=== PATIENT | female | born 1960 | race Two or more races ===

== ENCOUNTER → 2016-10-05 | Outpatient (CLI) | payer BC ==
--- NOTE | 2016-10-06 14:26 | MR ---
EXAMINATION TYPE: MR knee LT wo con DATE OF EXAM: 10/05/2016 1:56 PM COMPARISON: NONE HISTORY: Effuson, left knee pain and swelling TECHNIQUE: Multiplanar, multisequence imaging of the left knee is performed without IV contrast. FINDINGS: MEDIAL MENISCUS: Increased signal within the posterior horn medial meniscus compatible type I interna l derangement or degenerative change. Anterior horn appears intact LATERAL MENISCUS: There is linear signal within the anterior and posterior horns of the lateral menis cus compatible with internal derangement or type I tear. Meniscal cyst may be adjacent to the medial anterior horn lateral meniscus. CRUCIATE LIGAMENTS: The anterior and posterior cruciate ligaments are intact and unremarkable. COLLATERAL LIGAMENTS: The medial collateral ligament and lateral collateral ligament complex are inta ct and unremarkable. EXTENSOR MECHANISM: Visualized quadriceps and patellar tendons are intact. EFFUSION: Moderate joint effusion is present. POPLITEAL CYST: No popliteal/waters cyst. TRICOMPARTMENT SPACES: Mild degenerative changes of the medial lateral compartments. There is more ad vanced degenerative change with loss of the articular cartilage patellofemoral joint space. This appe ars to be predominantly from the patella. CARTILAGE: There is thinning of the posterior patellar cartilage. Mild thinning of the medial compart ment joint space is present. BONE MARROW SIGNAL: There is a subchondral cyst in the medial aspect lateral tibial plateau. Subchond ral cysts also in the lateral aspect lateral tibial plateau. Spurring is present from the medial and lateral femoral condyles. OTHER: No additional significant abnormality is appreciated. Note is made of superficial varicositie s. IMPRESSION: 1. Small to moderate joint effusion. 2. Internal derangement degenerative changes posterior horn medial meniscus and anterior and posterio r horns lateral meniscus. A meniscal cyst may be adjacent to the anterior horn lateral meniscus. 3. Subchondral cysts in the lateral tibial plateau medially and posterolaterally. 4. Osteoarthritic degenerative change. Greatest from the posterior patella.
== END | disposition home or self-care (01) ==
LOC: RADMRIMAIN 12:38
PROVIDERS: ATTEND Nurse Practitioner Family
DX: M23.8X2 Other internal derangements of left knee (principal); M17.12 Unilateral primary osteoarthritis, left knee; M25.862 Other specified joint disorders, left knee

== ENCOUNTER → 2019-04-28 | Outpatient (CLI) | payer BC ==
--- NOTE | 2019-04-29 14:16 | MM ---
Reason for exam: screening (asymptomatic). Last mammogram was performed 2 years and 9 months ago. History: Patient is postmenopausal and had first child at age 34. Physical Findings: A clinical breast exam by your physician is recommended on an annual basis and results should be correlated with mammographic findings. MG Screening Mammo w CAD Bilateral CC and MLO view(s) were taken. Prior study comparison: July 24, 2016, bilateral MG screening mammo w CAD. February 13, 2015, bilateral MG screening mammo w CAD. The breast tissue is heterogeneously dense. This may lower the sensitivity of mammography. Benign appearing bilateral calcifications. No suspicious abnormality. No significant changes when compared with prior studies. ASSESSMENT: Benign, BI-RAD 2 RECOMMENDATION: Routine screening mammogram of both breasts in 1 year.
== END | disposition home or self-care (01) ==
LOC: RADMAMWWP 07:45
PROVIDERS: ATTEND Family Medicine
DX: Z12.31 Encounter for screening mammogram for malignant neoplasm of breast (principal)
CPT/HCPCS: 77067

== ENCOUNTER → 2021-12-17 | Outpatient (CLI) | payer BC ==
--- NOTE | 2021-12-18 08:58 | MM ---
Reason for exam: screening (asymptomatic). Last mammogram was performed 2 years and 8 months ago. History: Patient is postmenopausal and had first child at age 34. Physical Findings: A clinical breast exam by your physician is recommended on an annual basis and results should be correlated with mammographic findings. MG Screening Mammo w CAD Bilateral CC and MLO view(s) were taken. Prior study comparison: April 28, 2019, bilateral MG screening mammo w CAD. July 24, 2016, bilateral MG screening mammo w CAD. The breast tissue is heterogeneously dense. This may lower the sensitivity of mammography. There are benign appearing round calcifications bilaterally. There is no discrete abnormality. ASSESSMENT: Benign, BI-RAD 2 RECOMMENDATION: Routine screening mammogram of both breasts in 1 year.
== END | disposition home or self-care (01) ==
LOC: RADMAMWWP 12:17
PROVIDERS: ATTEND Family Medicine
DX: Z12.31 Encounter for screening mammogram for malignant neoplasm of breast (principal); Z78.0 Asymptomatic menopausal state
CPT/HCPCS: 77067

== ENCOUNTER → 2023-04-22 | Outpatient (CLI) | payer OTHER ==
[2023-04-22 12:44] LABS: INR 0.9 (<1.2); Prothrombin Time 10.1 sec (9.0-12.0)
[2023-04-22 12:45] LABS: Partial Thromboplastin Time 23.8 sec (22.0-30.0)
[2023-04-22 13:17] LABS: Appearance,Urine Cloudy (Clear); Bilirubin,Urine Negative (Negative); Blood,Urine Negative (Negative); Calcium Oxalate Crystals,Urine Rare /hpf; Color,Urine Yellow; Glucose,Urine (UA) Negative (Negative); Granular Casts,Urine 2 /lpf (0); Hyaline Casts,Urine 2 /lpf (0-2); Ketones,Urine Negative (Negative); Leukocyte Esterase,Urine Negative (Negative); Mucus,Urine Many /hpf; Nitrite,Urine Negative (Negative); Protein,Urine Trace (Negative); RBC,Urine 2 /hpf (0-5); Specific Gravity,Urine 1.035 (1.001-1.035); Squamous Epithelial Cell,Urine 12 /hpf (0-4); Urobilinogen,Urine <2.0 mg/dL (<2.0); WBC,Urine <1 /hpf (0-5)
[2023-04-22 15:59] LABS: ALT 21 U/L (8-44); AST 22 U/L (13-35); Albumin 4.4 d/dL (3.8-4.9); Albumin/Globulin Ratio 1.63 Ratio (1.60-3.17); Alkaline Phosphatase 82 U/L (41-126); Blood Urea Nitrogen 11.9 mg/dL (9.0-27.0); Calcium 9.3 mg/dL (8.7-10.3); Carbon Dioxide 22.4 mmol/L (21.6-31.8); Chloride 107 mmol/L (96-109); Globulin 2.7 d/dL (1.6-3.3); Glucose 92 mg/dL (70-110); Potassium 3.9 mmol/L (3.5-5.5); Sodium 144 mmol/L (135-145); Total Bilirubin 0.4 mg/dL (0.3-1.2); Total Protein 7.1 d/dL (6.2-8.2)
[2023-04-22 16:21] LABS: HCT 38.6 % (37.2-46.3); HGB 12.2 d/dL (12.0-15.0); MCH 26.6 pg (27.0-32.0); MCHC 31.6 d/dL (32.0-37.0); MCV 84.3 FL (80.0-97.0); Mean Platelet Volume 11.5 FL (9.5-12.2); NRBC Per 100 WBC 0 X 10*3/uL (0.00-0.01); Platelet Count 287 X 10*3/uL (140-440); RBC 4.58 X 10*6/uL (4.10-5.20); RDW 15.4 % (11.5-14.5); WBC 6.37 X 10*3/uL (4.50-10.00)
== END | disposition home or self-care (01) ==
LOC: LABPAT 10:53
PROVIDERS: ATTEND Orthopaedic Surgery Sports Medicine
DX: Z01.818 Encounter for other preprocedural examination (principal); I45.10 Unspecified right bundle-branch block; M17.12 Unilateral primary osteoarthritis, left knee; R94.31 Abnormal electrocardiogram [ECG] [EKG]
CPT/HCPCS: 80053; 81001; 85027; 85610; 85730; 87070; 93005

== ENCOUNTER → 2023-06-05 | Outpatient (CLI) | payer MEDICAID ==
[2023-06-05 12:46] LABS: INR 0.9 (<1.2); Partial Thromboplastin Time 24.3 sec (22.0-30.0); Prothrombin Time 10.1 sec (9.0-12.0)
[2023-06-05 16:29] LABS: HCT 39.6 % (37.2-46.3); HGB 12.2 d/dL (12.0-15.0); MCH 26.3 pg (27.0-32.0); MCHC 30.8 d/dL (32.0-37.0); MCV 85.3 FL (80.0-97.0); NRBC Per 100 WBC 0 X 10*3/uL (0.00-0.01); Platelet Count 273 X 10*3/uL (140-440); RBC 4.64 X 10*6/uL (4.10-5.20); RDW 15.4 % (11.5-14.5); WBC 6.73 X 10*3/uL (4.50-10.00)
[2023-06-05 16:52] LABS: ALT 19 U/L (8-44); AST 18 U/L (13-35); Albumin 4.3 d/dL (3.8-4.9); Albumin/Globulin Ratio 1.43 Ratio (1.60-3.17); Alkaline Phosphatase 76 U/L (41-126); Blood Urea Nitrogen 18.4 mg/dL (9.0-27.0); Calcium 9.6 mg/dL (8.7-10.3); Carbon Dioxide 24.4 mmol/L (21.6-31.8); Chloride 106 mmol/L (96-109); Glucose 94 mg/dL (70-110); Potassium 4.1 mmol/L (3.5-5.5); Sodium 145 mmol/L (135-145); Total Bilirubin 0.3 mg/dL (0.3-1.2); Total Protein 7.3 d/dL (6.2-8.2)
[2023-06-05 23:42] LABS: Appearance,Urine Cloudy (Clear); Bacteria,Urine None Seen (None Seen); Bilirubin,Urine Small (Negative); Blood,Urine Negative (Negative); Calcium Oxalate Crystals,Urine Present (None Seen); Color,Urine Dark Yellow (Yellow); Ketones,Urine Trace (Negative); Mucus,Urine Present (None Seen); Nitrite,Urine Negative (Negative); PH, Urine 5.5; Specific Gravity,Urine >1.035 (1.001-1.030)
== END | disposition home or self-care (01) ==
LOC: LABPAT 10:35
PROVIDERS: ATTEND Orthopaedic Surgery Sports Medicine
DX: Z01.818 Encounter for other preprocedural examination (principal); M17.12 Unilateral primary osteoarthritis, left knee; I45.10 Unspecified right bundle-branch block; I49.3 Ventricular premature depolarization; R94.31 Abnormal electrocardiogram [ECG] [EKG]
CPT/HCPCS: 80053; 81001; 85027; 85610; 85730; 87070; 93005

== ENCOUNTER → 2024-01-15 | Outpatient (CLI) | payer MEDICARE ==
[2024-01-15 09:37] LABS: Prothrombin Time 10.6 sec (10.0-12.5)
[2024-01-15 14:30] LABS: HCT 43.3 % (37.2-46.3); HGB 13.6 g/dL (12.0-15.0); MCH 27.2 pg (27.0-32.0); MCHC 31.4 g/dL (32.0-37.0); MCV 86.6 FL (80.0-97.0); Mean Platelet Volume 11.1 FL (9.5-12.2); NRBC Per 100 WBC 0 X 10*3/uL (0.00-0.01); Platelet Count 312 X 10*3/uL (140-440); RDW 15.2 % (11.5-14.5); WBC 6.78 X 10*3/uL (4.50-10.00)
[2024-01-15 15:11] LABS: ALT 17 U/L (8-44); AST 22 U/L (13-35); Albumin 4.4 g/dL (3.8-4.9); Albumin/Globulin Ratio 1.42 Ratio (1.60-3.17); Alkaline Phosphatase 75 U/L (41-126); BUN/Creat Ratio 17.62 Ratio (12.00-20.00); Blood Urea Nitrogen 14.1 mg/dL (9.0-27.0); Calcium 9.3 mg/dL (8.7-10.3); Carbon Dioxide 21.8 mmol/L (21.6-31.8); Chloride 106 mmol/L (96-109); Globulin 3.1 g/dL (1.6-3.3); Glucose 122 mg/dL (70-110); Potassium 4.2 mmol/L (3.5-5.5); Sodium 141 mmol/L (135-145); Total Bilirubin 0.5 mg/dL (0.3-1.2); Total Protein 7.5 g/dL (6.2-8.2)
== END | disposition home or self-care (01) ==
LOC: LABWHC1 08:53
PROVIDERS: ATTEND Orthopaedic Surgery Sports Medicine
DX: Z01.818 Encounter for other preprocedural examination (principal); M17.11 Unilateral primary osteoarthritis, right knee; Z22.322 Carrier or suspected carrier of Methicillin resistant Staphylococcus aureus
CPT/HCPCS: 36415; 80053; 85027; 85610; 85730; 87070; 93005

== ENCOUNTER 2024-01-29 07:58 | Observation (INO) | payer MEDICAID, MEDICARE ==
[~2024-01-29 07:58] MED LIST: HYDROmorphone 0.5 MG/0.5 ML SYRINGE IVP PRN; METOCLOPRAMIDE 5 MG/ML 2 ML VIAL IVP PRN; MIDAZOLAM 2 MG/2 ML VIAL IV PRN; TRANEXAMIC 1,000 MG/100ML-NACL 1,000 MG in SALINE 1 100ML.BAG IVPB PRN; fentaNYL (PF) 50 MCG/ML 2 ML AMP IV PRN; fentaNYL (PF) 50 MCG/ML 2 ML AMP IVP PRN
[2024-01-29] MEDS: ACETAMINOPHEN TAB 500 MG TAB PO PRN (08:54)
[2024-01-29] MEDS: MELOXICAM 7.5 MG TAB PO PRN (08:55)
[2024-01-29] MEDS: GABAPENTIN 300 MG CAP PO PRN (08:55)
[2024-01-29] MEDS: LIDOCAINE 1% (10MG/ML) FOR IV START INTRADERMA PRN (09:07)
[2024-01-29] MEDS: LACTATED RINGERS 1,000 ML IV SCH ×2 (09:08→15:01)
[2024-01-29] MEDS: ONDANSETRON 4 MG/2 ML VIAL IVP PRN (09:08)
[2024-01-29] MEDS: IV FLUID CONTINUATION 1,000 ML IV ONE (09:08)
[2024-01-29] MEDS: DEXAMETHASONE SOD PHOSPHATE 4 MG/ML 1 ML VIAL IV ONE (09:08)
[2024-01-29] MEDS: MIDAZOLAM 2 MG/2 ML VIAL IVP ONE (09:20)
[2024-01-29] MEDS ORDERED: MIDAZOLAM 2 MG/2 ML VIAL ONE (10:00)
[2024-01-29] MEDS ORDERED: fentaNYL (PF) 50 MCG/ML 2 ML AMP ONE (10:00)
[2024-01-29] MEDS ORDERED: SODIUM CHLORIDE 0.9% (PF) 10 ML VIAL ONE (10:00)
[2024-01-29] MEDS ORDERED: PROPOFOL 10 MG/ML 20 ML VIAL IV ONE (10:00)
[2024-01-29] MEDS ORDERED: TRANEXAMIC 1,000 MG/100ML-NACL PREMIX BAG ONE (10:00)
[2024-01-29] MEDS ORDERED: ePHEDrine 50 MG/ML 1 ML VIAL ONE (10:00)
[2024-01-29] MEDS ORDERED: ROPIVACAINE 5 MG/ML 30 ML VIAL ONE (10:00)
[2024-01-29] MEDS: ceFAZolin 3,000 MG in SODIUM CHLORIDE 0.9% IRRIGATIO 3,000 ML IRRIGATION ONE (10:38)
--- NOTE | 2024-01-29 11:13 | P.ANPRN ---
Procedure Note - Anesthesia - Nerve Block Performed Right Adductor Canal Single Time Out Performed: Yes Date of Procedure: 01/29/24 Procedure Start Time: 09:00 Procedure Stop Time: 09:10 Location of Patient: PreOp Indication: Acute Post-Operative Pain, Analgesia, Dx/Pain Location (Right knee pain ), Requested by Surgeon Sedation Type: Sedate with meaningful contact maintained Preparation: Sterile Prep, Sterile Dressing Position: Supine Catheter: Indwelling (6cm indwelling catheter) Needle Types: Pajunk Needle Gauge: 21 Ultrasound used to visualize needle placement: Yes Ultrasound used to observe medication spread: Yes Injectate: 0.5% Ropivacaine (see comment for volume) (20ml) Blood Aspirated: No Pain Paresthesia on Injection Noted: No Resistance on Injection: Normal Image Stored and Saved: Yes Events: Uneventful and Well Tolerated
--- NOTE | 2024-01-29 11:14 | P.ANPRN ---
Procedure Note - Anesthesia - Nerve Block Performed Right iPack Single Time Out Performed: Yes Date of Procedure: 01/29/24 Procedure Start Time: 09:10 Procedure Stop Time: 09:15 Location of Patient: PreOp Indication: Acute Post-Operative Pain, Dx/Pain Location (right knee pain ), Requested by Surgeon Sedation Type: Sedate with meaningful contact maintained Position: Left Lateral Catheter: None Needle Types: Pajunk Needle Gauge: 21 Ultrasound used to visualize needle placement: Yes Ultrasound used to observe medication spread: Yes Injectate: Other (see comment) (15ml 0.2% ropivacaine) Blood Aspirated: No Pain Paresthesia on Injection Noted: No Resistance on Injection: Normal Image Stored and Saved: Yes Events: Uneventful and Well Tolerated
[2024-01-29] MEDS: LACTATED RINGERS 1,000 ML IV ONE (11:28)
[2024-01-29] MEDS ORDERED: MAGNESIUM HYDROXIDE 2,400 MG/30 ML CUP PO PRN (12:15)
[2024-01-29] MEDS ORDERED: NALOXONE 0.4 MG/ML 1 ML VIAL IV PRN (12:15)
[2024-01-29] MEDS ORDERED: ACETAMINOPHEN TAB 325 MG TAB PO PRN (12:15)
[2024-01-29] MEDS ORDERED: NA PHOS,M-B/NA PHOS,DI-BA 133 ML ENEMA RECTAL PRN (12:15)
[2024-01-29] MEDS ORDERED: ONDANSETRON 4 MG/2 ML VIAL IVP PRN (12:15)
[2024-01-29] MEDS ORDERED: bisacodyL 10 MG SUPP RECTAL PRN (12:15)
[2024-01-29] MEDS ORDERED: traMADol 50 MG TAB PO PRN (12:15)
[2024-01-29] MEDS ORDERED: HYDROmorphone 0.5 MG/0.5 ML SYRINGE IVP PRN ×2 (12:15)
[2024-01-29] MEDS ORDERED: HYDROcodone/APAP 7.5-325MG 1 EACH TAB PO PRN (12:18)
[2024-01-29] MEDS: ROPIVACAINE 1,100 MG, SODIUM CHLORIDE 0.9% 500 ML 330 ML, EMPTY PAIN BALL 1 EACH MISCELLANE PRN (12:34)
--- NOTE | 2024-01-29 13:21 | XR ---
EXAMINATION TYPE: XR knee limited RT DATE OF EXAM: 01/29/2024 12:53 PM CLINICAL INDICATION:Female, 63 years old with history of Evaluation for Postop abnormality and alignm ent; [facility] COMPARISON: None. TECHNIQUE: XR knee limited RT; examined in Frontal, lateral projections. FINDINGS: Status post total knee arthroplasty changes with hardware in appropriate alignment and in tact. No evidence of fracture. Subcutaneous lucencies and lucencies within the joint consistent with surgical changes. IMPRESSION: Status post total knee arthroplasty changes with hardware intact and appropriate alignment. No fractu res identified.
[2024-01-29] MEDS: HYDROcodone/APAP 7.5-325MG 1 EACH TAB PO PRN (15:41)
--- NOTE | 2024-01-29 16:24 | P.CONS ---
History of Present Illness - Reason for Consult Consult date: 01/29/24 medical management - History of Present Illness This is a 63-year-old white female who was admitted to the hospital with the pain. She underwent right knee surgery. She is currently postop, no chest pain no vomiting no dizziness. Family at bedside. She is accompanied by family. She denies chest pain or shortness of breath, no hematuria dysuria hematemesis hematochezia. Review of Systems 10 systems reviewed, pertinent positive and negative findings as in HPI, right knee pain, no chest pain or abdominal pain. Past Medical History Past Medical History: Asthma, Hypertension, Osteoarthritis (OA) Additional Past Medical History / Comment(s): VARICOSE VEINS History of Any Multi-Drug Resistant Organisms: None Reported Past Surgical History: Breast Surgery, Hysterectomy Additional Past Surgical History / Comment(s): RIGHT SIDE BREAST LUMPECTOMY. VARICOSE VEIN SURGERY Past Anesthesia/Blood Transfusion Reactions: No Reported Reaction Additional Past Anesthesia/Blood Transfusion Reaction / Comm: slow to wake up Past Psychological History: Anxiety, Depression Smoking Status: Former smoker Past Alcohol Use History: Rare Additional Past Alcohol Use History / Comment(s): quit smoking 7 yrs. ago, smoked 20 yrs. <ppd Past Drug Use History: None Reported - Past Family History Mother Family Medical History: Myocardial Infarction (RI) Additional Family Medical History / Comment(s): Father had Parkinson's Medications and Allergies Home Medications Medication Instructions Recorded Confirmed Type amLODIPine BESYLATE [Norvasc] 2.5 mg PO HS 02/08/14 01/26/24 History Ascorbic Acid [Vitamin C] 1,000 mg PO DAILY 01/26/24 01/26/24 History Budesonide-Formot 160-4.5 Mcg 2 puff INHALATION BID 01/26/24 01/29/24 History [Symbicort 160-4.5 Mcg Inhaler] Cholecalciferol [Vitamin D3 (25 25 mcg PO DAILY 01/26/24 01/29/24 History Mcg = 1000 Iu)] Ibuprofen [Motrin] 400 mg PO Q6HR PRN 01/26/24 01/26/24 History Losartan [Cozaar] 50 mg PO HS 01/26/24 01/26/24 History QUEtiapine [SEROquel] 25 mg PO HS 01/26/24 01/26/24 History Sertraline [Zoloft] 50 mg PO DAILY 01/26/24 01/29/24 History traMADol HCL 50 mg PO Q4H PRN 01/26/24 01/29/24 History Allergies Allergy/AdvReac Type Severity Reaction Status Date / Time No Known Allergies Allergy Verified 01/29/24 08:29 Physical Exam Vitals: Vital Signs Temp Pulse Pulse Resp BP Pulse Ox 01/29/24 14:30 70 16 142/72 97 01/29/24 14:16 66 16 145/67 97 01/29/24 14:00 67 16 145/67 97 01/29/24 13:30 66 16 153/64 97 01/29/24 13:16 62 16 145/72 97 01/29/24 13:00 62 16 150/72 97 01/29/24 12:45 65 16 150/72 95 01/29/24 12:30 67 16 146/67 95 01/29/24 12:15 67 16 128/60 95 01/29/24 12:13 97.3 F L 70 16 135/63 95 01/29/24 09:35 82 16 171/79 95 01/29/24 08:35 99.0 F 82 16 166/92 94 L Intake and Output 01/29/24 01/29/24 01/29/24 06:59 14:59 22:59 Intake Total 1551 Output Total 100 Balance 1451 Intake: IV 1551 Output: Estimated Blood Loss 100 Other: Weight 107.1 kg Constitutional: No acute distress, conversant, pleasant Eyes: Anicteric sclerae, moist conjunctiva, no lid-lag, PERRLA ENMT: NC/AT,Oropharynx clear, no erythema, exudates Neck:Supple, FROM, no masses, or JVD, No carotid bruits; No thyromegaly Lungs: Clear to auscultation, Clear to percussion, Normal respiratory effort, no accessory muscle use Cardiovascular: Heart regular in rate and rhythm, No murmurs, gallops, or rubs no peripheral edema Abdominal: Soft Nontender, non distended, no guarding, no rebound or rigidity, Normoactive bowel sounds No hepatomegaly, No splenomegaly, No palpable mass No abdominal wall hernia noted Skin: Normal temperature, tone, texture, turgor, No induration No subcutaneous nodules, No rash, lesions, No ulcers Extremities:No digital cyanosis No clubbing, Pedal pulses intact and symmetrical Radial pulses intact and symmetrical Normal gait and station, No calf tenderness Psychiatric: Alert and oriented to person, place and time, Appropriate affect Intact judgement Neuro: Muscles Strength 5/5 in all 4 extremities, Sensation to light touch grossly present throughout, Cranial nerves II-XII grossly intact. No focal sensory deficits Assessment and Plan Plan: Assessment and plan: 1. Right knee pain status post surgical intervention: Supportive care, PT OT and pain control. 2. Essential hypertension: Continue patient medications. 3. Depression: Continue Seroquel/Zoloft. Patient on Norvasc losartan. 4. Obesity: BMI 33.9. Disposition: Home in the next 1 to 2 days pending clinical progression
[2024-01-29] MEDS: HYDROmorphone 0.5 MG/0.5 ML SYRINGE IVP PRN (18:47)
--- NOTE | 2024-01-29 19:21 | OP ---
OPERATIVE REPORT DATE OF SERVICE : 01/29/2024 AUTOMATION MACHINE OPERATOR: Beto Nur PA-C. PREOPERATIVE DIAGNOSIS: Right knee osteoarthrosis. POSTOPERATIVE DIAGNOSIS: Right knee osteoarthrosis. OPERATION: Right total knee arthroplasty. ANESTHESIA: Spinal with sedation. ESTIMATED BLOOD LOSS: 100 mL. TOURNIQUET TIME: 55 minutes at 250 mmHg. COMPLICATIONS: None apparent. DRAINS: None. DISPOSITION: Postanesthesia care unit. INDICATIONS: Marta is a very pleasant 63-year-old female with longstanding history of right knee pain. History and physical examination are consistent with advanced right knee osteoarthrosis. She has been through significant operative management up to this point. Further treatment options were discussed and she decided to go forward with the right total knee arthroplasty. The risks of procedure were discussed with her in detail. These risks include but are not limited to risk of infection, nerve damage, bleeding, pain, and a small risk of deep vein thrombosis which could lead to fatal pulmonary embolism. There is also risk of loosening of the implant, which could require revision operation. The patient understands these risks. All of her questions with regard to the procedure were answered to her satisfaction and an appropriate informed consent was obtained. DESCRIPTION OF PROCEDURE: The patient was identified in the preoperative holding area. Surgical site was marked by both the patient and myself. She was given 2 g of Ancef IV prophylactic purposes. She was then transported to the operative suite. She was placed supine on the operating room table. Spinal anesthetic was then administered, dosed per the Anesthesia without apparent complication. An examination under anesthesia was then performed. The patient was 2 to 3 degrees shy of full extension. She had 100 degrees of flexion. Medial collateral ligament, lateral collateral ligament, and posterior cruciate ligaments were stable. Tourniquet was then placed high on the right upper thigh, well-padded in preparation for surgery. The patient's right lower extremity was then prepped and draped in the usual sterile fashion. Standard surgical pause was undertaken to ensure that we were operating the correct site and appropriate preoperative antibiotics were given. All staff in the room were in agreement and we proceeded. The outlines of the patella were marked with a surgical pen. A planned 12 cm vertical incision centered over the patella was marked with a surgical pen. Leg was then exsanguinated with Esmarch dressing. The knee was then flexed and the tourniquet inflated to 250 mmHg. The total tourniquet time for the procedure was 55 minutes. Incision was then made with a 10-blade scalpel. Dissection was carried down sharply overlying fascia. Great care was taken to minimize the skin flaps. The knee was then exposed using a standard medial parapatellar approach. A small cuff of quadriceps tendon was then left for suturing. She was in a bit of varus preoperatively. A standard medial release was then made. The superficial medial collateral ligament dissected off the bone around to the posterior aspect of the proximal tibia. The medial meniscus was then excised as well. The lateral meniscus was also released anteriorly. The leg was then externally rotated. The patella was everted. The knee was flexed. Retractors were then placed to protect the collateral ligaments. I then proceeded to remove the infrapatellar fat pad. This excised sharply tangentially with the fibers of the patellar tendon. I then proceeded to remove the peripheral osteophytes. This was done with a rongeur. I then proceeded with the distal femoral resection. She did have near full extension. A planned 9 mm resection was then done. The femoral canal was then entered in the midline, the femur approximately 10 mm anterior to the origin of the posterior cruciate ligament. The rosenda was then advanced down the center of the femur and placed intramedullary. Based on the preoperative radiographs, the angle between the anatomic and mechanical axis of the femur was approximately 4 to 5 degrees. The valgus angle of the distal femoral cutting guide was then set at 4 degrees for the right knee. The distal femoral cutting guide was then advanced over the intramedullary rosenda. This was seated firmly against the femur. I then as mentioned planned to take 9 mm off the distal femur. The cutting block was then secured onto the femur with pins. The jig was then removed. The distal femoral cut was made through the slot of the block. The pins were then removed. The distal femoral cutting block was removed. The accuracy of the distal femoral cuts was checked with 2 flat bars. I then proceeded with femoral sizing. Posterior referencing sizing guide was held firmly against the resected distal surface of the femur. The posterior condyles were resting on the posterior plane of the guide. The sizing stylus was then placed on the anterior femur. The size was measured as a size 8. I then assessed for femoral rotation. The plan was for 3 degrees of external rotation. Three degrees of external rotation was placed onto the jig. These holes were then marked. I then confirmed the rotation by 3 separate methods. This was done using the epicondylar axis as well as Whitesides line and posterior referencing. It was deemed that the external rotation was proper. I then went forward with placement of the femoral cutting block. This was placed over the previously placed pin holes. The Lakhwinder wing was then placed on the anterior slots to ensure that we would not notch the anterior femur with the anterior femoral cut. I then proceeded with the anterior femoral cut. This was flushed with the anterior cortex of the femur. The posterior cuts were then made followed by the anterior chamfer cut, then the posterior chamfer cut. The cutting block was then removed. Throughout the resection, the collateral ligaments were protected with retractors. I then placed a trial size 8 femur. It was slightly wide, but the narrow fit very nicely and it flushed with the distal end of the femur. The drill holes were then made. I then proceeded with the tibial cut. Planned for cruciate-retaining knee. The guide was placed and set for varus, valgus, and for slope. The height set for approximately 2 mm resection from the medial tibial plateau, which was the lower side. I was happy with the alignment and the amount of resection. The cutting block was then pinned to the proximal tibia. The alignment rosenda was removed. The proximal tibia was resected with a reciprocating saw. Again, this was done with retractors protecting the collateral ligaments as well as the posterior cruciate ligament. I then proceeded to evaluate the flexion and extension gaps. A 10 mm block was then placed. The flexion extension gaps were equal. I then proceeded to resect the posterior osteophytes. She had very minimal posterior osteophytes. This was done using a curved osteotome. This resected the posterior osteophytes. The posterior capsular stripping was done off the posterior aspect of the femur at this time. The osteophytes were then removed. I then proceeded with resection of the patella. The thickness of the patella was measured using the caliper. The thickness was 22 mm. The thickness of the anticipated patellar dome was taken into account. Resection was then performed and confirmed to be equal in 4 quadrants using a caliper. Approximately 14 mm of bone remained after resection. A 29 x 8 standard patellar trial was then placed. The holes were drilled and the trial was then placed. I then proceeded with sizing tibial plate. A size E tibial plate fit very nicely. I then placed the trial femur, the tibial tray, and the patellar button. A 10 mm trial tibial insert was also placed. The components fit very nicely. She had full extension and flexion. The extension and flexion gaps were equal and stable to both varus and valgus stress. The patella tracked appropriately. Tibial tray rotation was then marked with a Bovie. This was externally rotated properly. I then proceeded with tibial preparation. I first drilled the femoral holes and removed the femoral component. The tibial tray was then set for proper external rotation as well as medial lateral placement onto the tibia. It was then pinned into place. I then proceeded with punching the keel. I then decided to proceed with cementing of all our components. The knee was thoroughly irrigated with sterile saline solution via pulse lavage. The lateral genicular artery was identified and cauterized. All blood was removed from the bone of the tibia, femur, and patella with pulsed lavage. I then proceeded with cementing. Two packs of antibiotic bone cement prepared on the back table by surgical brace maker. I then proceeded with cementing of the tibia first. Cement was impacted in the keel as well as deeply seated in the bone. A second coat cement was then placed. The tibia was then impacted into place. Excess cement was removed with Brisbane's and Jokers. I then proceeded with cementing of the femoral component. The femoral component was also cemented using standard technique. Excess cement was removed. A 10 mm trial insert was then placed in the knee. It was brought into full extension with a constant axial load placed until the cement had hardened. The patellar component was then cemented. This held firmly compressive device until the cement had dried. When the cement had dried, the knee was taken out of extension. All excess cement was removed from around the prosthesis. I then trialed the knee with a 10 mm insert. Flexion and extension gaps were appropriate. I then trialed with a 12 mm insert. Flexion and extension gaps felt better. The knee was stable with a 12 mm insert, it came into full extension. I decided to go forward with the 12 mm medial congruent cross-linked cruciate-retaining tibial insert. Polyethylene was then placed on the tibial tray and locked into place. The knee was then reduced. The knee was again further irrigated with sterile saline solution with antibiotic added. The tourniquet was then deflated. Total tourniquet time for the procedure was 55 minutes at 250 mmHg. Final components were Mick Persona size 8 narrow cruciate-retaining femoral component, size E tibial plate, a 12 mm medial congruent cruciate-retaining polyethylene insert, and a 29 x 8 mm patella. I then proceeded with closure. Again, the knee was thoroughly irrigated. The quadriceps tendon and medial retinaculum reapproximated with #2 Ethibond suture. The extensor mechanism was then closed with a running #2 Quill suture. Subcutaneous tissues were closed with 2-0 Vicryl interrupted suture. The skin was closed with a running 3-0 Quill suture. Dermabond was applied to the incision. Sterile compressive dressings were applied. All sponge and needle counts were deemed correct prior to closure. The patient tolerated the procedure without apparent complication. She was transferred to the recovery room in stable condition. MMODL / IJN: [id number] /
[2024-01-29] MEDS: amLODIPine 2.5 MG TAB PO SCH (21:11)
[2024-01-29] MEDS: ASPIRIN 81 MG PO SCH (21:11)
[2024-01-29] MEDS: QUEtiapine 25 MG TAB PO SCH (21:11)
[2024-01-29] MEDS: SENNOSIDES-DOCUSATE SODIUM 1 EACH TAB PO SCH (21:11)
--- NOTE | 2024-01-30 07:57 | P.PN ---
Progress Note - Text Progress Note Date: 01/30/24 63 yo female s/p Right Total knee arthroplasty with adductor canal cathter POD#1 Overall doing well VAS 2-4/10 in severity No motor deficits insertion site is C/D/I Patient doing well, will continue catheter at current setting
[2024-01-30] MEDS: MULTIVITAMINS, THERA 1 EACH TAB PO SCH (08:13)
[2024-01-30] MEDS: SERTRALINE 50 MG TAB PO SCH (08:42)
[2024-01-30] MEDS ORDERED: IPRATROPIUM-ALBUTEROL 3 ML NEB INHALATION PRN (08:47)
[2024-01-30 09:47] LABS: African American GFR (CKD) >90 (>60 ml/min/1.73 sqM); Anion Gap 8 mmol/L; Blood Urea Nitrogen 17 mg/dL (7-17); Calcium 8.9 mg/dL (8.4-10.2); Carbon Dioxide 22 mmol/L (22-30); Chloride 110 mmol/L (98-107); Glucose 112 mg/dL (74-99); Magnesium 1.9 mg/dL (1.6-2.3); Non-African American GFR(CKD) >90 (>60 ml/min/1.73 sqM); Potassium 3.9 mmol/L (3.5-5.1); Sodium 140 mmol/L (137-145)
[2024-01-30 11:31] LABS: Basophils # (A) 0.01 X 10*3/uL (0.00-0.10); Basophils % (A) 0.1 %; Eosinophils # (A) 0.01 X 10*3/uL (0.04-0.35); Eosinophils % (A) 0.1 %; HCT 36.6 % (37.2-46.3); HGB 11.3 g/dL (12.0-15.0); Lymphocytes # (A) 0.98 X 10*3/uL (0.90-5.00); Lymphocytes % (A) 8.7 %; MCHC 30.9 g/dL (32.0-37.0); MCV 87.4 FL (80.0-97.0); Mean Platelet Volume 10.9 FL (9.5-12.2); Monocytes # (A) 1.08 X 10*3/uL (0.20-1.00); Monocytes % (A) 9.6 %; NRBC Per 100 WBC 0 X 10*3/uL (0.00-0.01); Neutrophils # (A) 9.11 X 10*3/uL (1.80-7.70); Neutrophils % (A) 81.1 %; Platelet Count 282 X 10*3/uL (140-440); RBC 4.19 X 10*6/uL (4.10-5.20); RDW 15.5 % (11.5-14.5); WBC 11.24 X 10*3/uL (4.50-10.00)
[2024-01-30] MEDS: SYMBICORT 160-4.5 MCG INHALER INHALATION SCH (11:37)
--- NOTE | 2024-01-30 14:05 | P.PN ---
Subjective Progress Note Date: 01/30/24 Hospital course: Patient is a very pleasant 63-year-old female with a past medical history of osteoarthrosis, hypertension, asthma, and anxiety with depression. She is currently admitted under orthopedic surgery team status post elective right total knee arthroplasty completed by Dr. Cho on 01/29/2024. We are consulted for medical management throughout hospitalization. Physical exam: Vital signs reviewed and stable. General: Nontoxic, no distress and appears stated age. Derm: Skin warm and dry, normal coloration for ethnicity. Head: Atraumatic, normocephalic and symmetric. Eyes: EOMs intact, no lid lag, and anicteric sclera Mouth: no lip lesions, mucus membranes moist Cardiovascular: regular rate and rhythm with normal S1S2, no murmur, positive posterior tibial pulses bilaterally, and cap refill < 2 seconds. Lungs: Respirations even, regular, and unlabored on room air. Lungs CTA bilaterally, no rhonchi, no rales, no wheezing, and no accessory muscle usage. Abdominal: soft, nontender to palpation, no guarding, no appreciable organomegaly Ext: No gross muscle atrophy, no edema, no contractures. Movement and sensation intact. Patient with postoperative dressing and ice pack to right knee. Neuro: Speech clear, face symmetrical and CN II-XII grossly intact with no noted focal neuro deficits Psych: Alert and oriented to person, place, time, and situation. Appropriate and pleasant affect. Assessment and Plan of Care: Status post right total knee arthroplasty secondary to severe right knee osteoarthrosis Management per primary admitting orthopedic surgery team including DVT prophylaxis, pain management, wound/dressing changes, weightbearing, and PT/OT. DVT prophylaxis currently with aspirin 81 mg twice daily. Hypertension Continue daily medication regimen with amlodipine 2.5 mg nightly and losartan 50 mg nightly. Anxiety with depression Continue daily medication regimen with Seroquel 25 mg nightly and Zoloft 50 mg daily. Asthma, not in acute exacerbation Continue daily medication regimen with Symbicort 160-4.5 mcg inhaler 2 puffs twice daily and patient placed on DuoNebs as needed for wheezing/shortness of breath. Data and imaging reviewed: -Postoperative labs reviewed. CBC showing mild leukocytosis with WBC count of 11.24 and acute postoperative blood loss anemia with hemoglobin of 11.3 with preoperative hemoglobin of 13.6. BMP revealing hyperchloremia with chloride of 110 otherwise normal findings. Blood glucose was 112 and magnesium was 1.9. -Vital signs reviewed. Blood pressure 127/86, heart rate 67, respiratory rate 16, temp 97.6 F, and SpO2 of 94% on room air. Patient medically optimized and cleared for discharge once cleared by primary admitting orthopedic surgery team. Patient plans to go to SNF for rehab and awaiting placement at this time. Thank you for allowing us to participate in the care of this pleasant patient. Do not hesitate to contact us with questions. Someone can be reached from the [facility] hospitalist group all hours of the day at [phone] or via [employer]. Patient was seen independently by Nurse Pracitioner. This document was prepared using [employer] dictation software. Please allow for errors in agricultural education teacher, while rare they do occur. Quinten Jenkins NP rendered care for this patient independently, reviewed the findings and plan as documented in the note above. I did not physically speak with or examine the patient on this date. Objective - Vital Signs Vital signs: Vital Signs Temp 97.6 F 01/30/24 07:27 Pulse 67 01/30/24 07:27 Resp 16 01/30/24 07:27 BP 127/86 01/30/24 07:27 Pulse Ox 94 L 01/30/24 07:27 FiO2 Intake & Output 01/29/24 01/30/24 01/30/24 18:59 06:59 18:59 Intake Total 1751 Output Total 100 Balance 1651 Weight 107.1 kg Intake: IV 1551 Oral 200 Output: Estimated Blood Loss 100 Other: Voiding Method Diaper # Voids 2 2 - Labs CBC & Chem 7: 01/30/24 05:46 01/30/24 05:46
[2024-01-30] MEDS: LOSARTAN 50 MG TAB PO SCH (20:30)
--- NOTE | 2024-01-30 21:59 | P.PN ---
Subjective Progress Note Date: 01/30/24 Principal diagnosis: Right TKA Patient is seen at bedside this morning. She is postop day #1 from right total knee arthroplasty. She has pain at the surgical site as expected but denies any new complaints. She denies numbness, tingling or calf pain. Review of systems is negative for fever, chills, chest pain, shortness of breath or other Objective - Vital Signs Vital signs: Vital Signs Temp 98.3 F 01/30/24 19:21 Pulse 75 01/30/24 19:21 Resp 17 01/30/24 19:21 BP 160/81 01/30/24 19:21 Pulse Ox 92 L 01/30/24 19:21 FiO2 Intake & Output 01/30/24 01/30/24 01/31/24 06:59 18:59 06:59 Intake Total 250 Balance 250 Intake: Oral 250 Other: Voiding Method Diaper Diaper # Voids 2 4 - Exam Inspection reveals a benign surgical wound. There is no active bleeding or drainage. Neurovascular status is intact throughout the lower extremity with motor and sensation fully intact. Calf is soft and nontender. 2+ dorsalis pedis pulse and less than 2 second cap refill is present. - Constitutional General appearance: Present: no acute distress - Labs CBC & Chem 7: 01/30/24 05:46 01/30/24 05:46 Labs: Abnormal Lab Results - Last 24 Hours (Table) 01/30/24 01/30/24 Range/Units 05:46 05:46 WBC 11.24 H (4.50-10.00) X 10*3/uL Hgb 11.3 L (12.0-15.0) g/dL Hct 36.6 L (37.2-46.3) % MCHC 30.9 L (32.0-37.0) g/dL RDW 15.5 H (11.5-14.5) % Immature Gran # 0.05 H (0.00-0.04) X 10*3/uL Neutrophils # 9.11 H (1.80-7.70) X 10*3/uL Monocytes # 1.08 H (0.20-1.00) X 10*3/uL Eosinophils # 0.01 L (0.04-0.35) X 10*3/uL Chloride 110 H (98-107) mmol/L Glucose 112 H (74-99) mg/dL Assessment and Plan (1) Osteoarthritis of right knee Narrative/Plan: She will continue with routine postop orthopedic protocol including pain management, wound care, PT, DVT prophylaxis and medical management. Expect that she will transfer to ECF in next 1-2 days tomorrow Current Visit: Yes Status: Acute Priority: Medium Code(s): M17.11 - UNILATERAL PRIMARY OSTEOARTHRITIS, RIGHT KNEE SNOMED Code(s): 527047574193859 Time with Patient: Less than 30
--- NOTE | 2024-01-31 11:09 | P.PN ---
Subjective Progress Note Date: 01/31/24 Principal diagnosis: Right TKA Patient is seen at bedside this morning. She is postop day #2 from right total knee arthroplasty. She has pain at the surgical site as expected but denies any new complaints. She denies numbness, tingling or calf pain. Review of systems is negative for fever, chills, chest pain, shortness of breath or other Objective - Vital Signs Vital signs: Vital Signs Temp 98.2 F 01/31/24 07:57 Pulse 76 01/31/24 07:57 Resp 16 01/31/24 07:57 BP 119/73 01/31/24 07:57 Pulse Ox 95 01/31/24 07:57 FiO2 Intake & Output 01/30/24 01/31/24 01/31/24 18:59 06:59 18:59 Intake Total 250 Balance 250 Intake: Oral 250 Other: Voiding Method Diaper # Voids 4 2 - Exam Inspection reveals a benign surgical wound. There is no active bleeding or drainage. Neurovascular status is intact throughout the lower extremity with motor and sensation fully intact. Calf is soft and nontender. 2+ dorsalis pedis pulse and less than 2 second cap refill is present. - Constitutional General appearance: Present: no acute distress - Labs CBC & Chem 7: 01/30/24 05:46 01/30/24 05:46 Labs: Abnormal Lab Results - Last 24 Hours (Table) 01/30/24 Range/Units 05:46 WBC 11.24 H (4.50-10.00) X 10*3/uL Hgb 11.3 L (12.0-15.0) g/dL Hct 36.6 L (37.2-46.3) % MCHC 30.9 L (32.0-37.0) g/dL RDW 15.5 H (11.5-14.5) % Immature Gran # 0.05 H (0.00-0.04) X 10*3/uL Neutrophils # 9.11 H (1.80-7.70) X 10*3/uL Monocytes # 1.08 H (0.20-1.00) X 10*3/uL Eosinophils # 0.01 L (0.04-0.35) X 10*3/uL Assessment and Plan (1) Osteoarthritis of right knee Narrative/Plan: She will continue with routine postop orthopedic protocol including pain management, wound care, PT, DVT prophylaxis and medical management. Expect that she will transfer to ECF in next 1-2 days Current Visit: Yes Status: Acute Priority: Medium Code(s): M17.11 - UNILATERAL PRIMARY OSTEOARTHRITIS, RIGHT KNEE SNOMED Code(s): 767404508003131 Time with Patient: Less than 30
--- NOTE | 2024-01-31 14:20 | P.PN ---
Subjective Progress Note Date: 01/31/24 Hospital course: Patient is a very pleasant 63-year-old female with a past medical history of osteoarthrosis, hypertension, asthma, and anxiety with depression. She is currently admitted under orthopedic surgery team status post elective right total knee arthroplasty completed by Dr. Cho on 01/29/2024. We were consulted for medical management throughout hospitalization. Physical exam: Patient seen and fully evaluated at bedside this morning. Patient reports pain is better controlled today and is currently awaiting discharge to [facility] on 02/02/2024. He currently denies having any complaints at this time other than feeling cold which she reports has improved since drinking some warm tea. She denies having any headache, lightheadedness, dizziness, chest pain, palpitations, shortness of breath, or any other complaints at this time. Vital signs reviewed and stable. General: Nontoxic, no distress and appears stated age. Derm: Skin warm and dry, normal coloration for ethnicity. Head: Atraumatic, normocephalic and symmetric. Eyes: EOMs intact, no lid lag, and anicteric sclera Mouth: no lip lesions, mucus membranes moist Cardiovascular: regular rate and rhythm with normal S1S2, no murmur, positive posterior tibial pulses bilaterally, and cap refill < 2 seconds. Lungs: Respirations even, regular, and unlabored on room air. Lungs CTA bilaterally, no rhonchi, no rales, no wheezing, and no accessory muscle usage. Abdominal: soft, nontender to palpation, no guarding, no appreciable organomegaly Ext: No gross muscle atrophy, no edema, no contractures. Movement and sensation intact. Patient with postoperative dressing and ice pack to right knee. Neuro: Speech clear, face symmetrical and CN II-XII grossly intact with no noted focal neuro deficits Psych: Alert and oriented to person, place, time, and situation. Appropriate and pleasant affect. Assessment and Plan of Care: Status post right total knee arthroplasty secondary to severe right knee osteoarthrosis Management per primary admitting orthopedic surgery team including DVT prophylaxis, pain management, wound/dressing changes, weightbearing, and PT/OT. DVT prophylaxis currently with aspirin 81 mg twice daily. Hypertension Continue daily medication regimen with amlodipine 2.5 mg nightly and losartan 50 mg nightly. Anxiety with depression Continue daily medication regimen with Seroquel 25 mg nightly and Zoloft 50 mg daily. Asthma, not in acute exacerbation Continue daily medication regimen with Symbicort 160-4.5 mcg inhaler 2 puffs t wice daily and patient placed on DuoNebs as needed for wheezing/shortness of breath. Data and imaging reviewed: -Postoperative labs reviewed. CBC showing mild leukocytosis with WBC count of 11.24 and acute postoperative blood loss anemia with hemoglobin of 11.3 with preoperative hemoglobin of 13.6. BMP revealing hyperchloremia with chloride of 110 otherwise normal findings. Blood glucose was 112 and magnesium was 1.9. -Vital signs reviewed. Blood pressure 119/73, heart rate 76, respiratory rate 16, temp 98.2 F, and SpO2 of 95% on 2 L. Patient medically optimized and cleared for discharge once cleared by primary admitting orthopedic surgery team. Plans for discharge on Friday morning to [facility] rehab [facility]. Thank you for allowing us to participate in the care of this pleasant patient. Do not hesitate to contact us with questions. Someone can be reached from the [facility] hospitalist group all hours of the day at [phone] or via [employer]. Patient was seen independently by Nurse Pracitioner. This document was prepared using [employer] dictation software. Please allow for e rrors in clinical support manager, while rare they do occur. Quinten Jenkins NP rendered care for this patient independently, reviewed the findings and plan as documented in the note above. I did not physically speak with or examine the patient on this date. Objective - Vital Signs Vital signs: Vital Signs Temp 98.2 F 01/31/24 07:57 Pulse 76 01/31/24 07:57 Resp 16 01/31/24 07:57 BP 119/73 01/31/24 07:57 Pulse Ox 95 01/31/24 07:57 FiO2 Intake & Output 01/30/24 01/31/24 01/31/24 18:59 06:59 18:59 Intake Total 250 Balance 250 Intake: Oral 250 Other: Voiding Method Diaper # Voids 4 2 - Labs CBC & Chem 7: 01/30/24 05:46 01/30/24 05:46 Labs: Abnormal Lab Results - Last 24 Hours (Table) 01/30/24 01/30/24 Range/Units 05:46 05:46 WBC 11.24 H (4.50-10.00) X 10*3/uL Hgb 11.3 L (12.0-15.0) g/dL Hct 36.6 L (37.2-46.3) % MCHC 30.9 L (32.0-37.0) g/dL RDW 15.5 H (11.5-14.5) % Immature Gran # 0.05 H (0.00-0.04) X 10*3/uL Neutrophils # 9.11 H (1.80-7.70) X 10*3/uL Monocytes # 1.08 H (0.20-1.00) X 10*3/uL Eosinophils # 0.01 L (0.04-0.35) X 10*3/uL Chloride 110 H (98-107) mmol/L Glucose 112 H (74-99) mg/dL
--- NOTE | 2024-02-01 09:34 | P.PN ---
Subjective Progress Note Date: 02/01/24 Hospital course: Patient is a very pleasant 63-year-old female with a past medical history of osteoarthrosis, hypertension, asthma, and anxiety with depression. She is currently admitted under orthopedic surgery team status post elective right total knee arthroplasty completed by Dr. Cho on 01/29/2024. We were consulted for medical management throughout hospitalization. Physical exam: Patient seen and fully evaluated at bedside this morning. Patient sitting up in chair this morning with legs elevated. Reports moderate postoperative swelling to right lower extremity, but does report her pain has improved. Patient awaiting custodial facility placement with plans for discharge tomorrow morning to [facility]. Patient does report having constipation and unable to have a bowel movement but denies any other complaints at this time. Vital signs reviewed and stable. General: Nontoxic, no distress and appears stated age. Derm: Skin warm and dry, normal coloration for ethnicity. Head: Atraumatic, normocephalic and symmetric. Eyes: EOMs intact, no lid lag, and anicteric sclera Mouth: no lip lesions, mucus membranes moist Cardiovascular: regular rate and rhythm with normal S1S2, no murmur, positive posterior tibial pulses bilaterally, and cap refill < 2 seconds. Lungs: Respirations even, regular, and unlabored on room air. Lungs CTA bilaterally, no rhonchi, no rales, no wheezing, and no accessory muscle usage. Abdominal: soft, nontender to palpation, no guarding, no appreciable organomegal y Ext: No gross muscle atrophy, no edema, no contractures. Movement and sensation intact. Patient with postoperative dressing and ice pack to right knee. Neuro: Speech clear, face symmetrical and CN II-XII grossly intact with no noted focal neuro deficits Psych: Alert and oriented to person, place, time, and situation. Appropriate and pleasant affect. Assessment and Plan of Care: Status post right total knee arthroplasty secondary to severe right knee osteoarthrosis Management per primary admitting orthopedic surgery team including DVT prophylaxis, pain management, wound/dressing changes, weightbearing, and PT/OT. DVT prophylaxis currently with aspirin 81 mg twice daily. Constipation Patient reports constipation despite current bowel regimen with Senokot. Orders placed for lactulose 30 g p.o. x 1 dose. Will monitor for resolution and place additional orders if indicated based on patient's needs. Hypertension Continue daily medication regimen with amlodipine 2.5 mg nightly and losartan 50 mg nightly. Anxiety with depression Continue daily medication regimen with Seroquel 25 mg nightly and Zoloft 50 mg daily. Asthma, not in acute exacerbation Continue daily medication regimen with Symbicort 160-4.5 mcg inhaler 2 puffs twice daily and patient placed on DuoNebs as needed for wheezing/shortness of breath. Data and imaging reviewed: -Morning labs were drawn and received by lab but currently pending results. Will follow-up on results once available and place additional orders if indicated based upon these findings. -Vital signs reviewed. Blood pressure 129/80, heart rate 85, respiratory rate 16, temp 98.6 F, and SpO2 of 90% on 2 L. Patient medically optimized and cleared for discharge once cleared by primary admitting orthopedic surgery team. Plans for discharge on Friday to [facility] rehab [facility]. Thank you for allowing us to participate in the care of this pleasant patient. Do not hesitate to contact us with questions. Someone can be reached from the [facility] hospitalist group all hours of the day at [phone] or via [employer]. Patient was seen independently by Nurse Pracitioner. This document was prepared using [employer] dictation software. Please allow for errors in patent leather sorter, while rare they do occur. Quinten Jenkins NP rendered care for this patient independently, reviewed the findings and plan as documented in the note above. I did not physically speak with or examine the patient on this date. Objective - Vital Signs Vital signs: Vital Signs Temp 99.1 F 02/01/24 01:21 Pulse 79 02/01/24 01:21 Resp 17 02/01/24 01:21 BP 168/86 02/01/24 01:21 Pulse Ox 93 L 02/01/24 01:21 FiO2 Intake & Output 01/31/24 02/01/24 02/01/24 18:59 06:59 18:59 Other: # Voids 1 - Labs CBC & Chem 7: 02/01/24 05:20 02/01/24 05:20
[2024-02-01 09:57] LABS: BUN/Creat Ratio 18.83 Ratio (12.00-20.00); Blood Urea Nitrogen 11.3 mg/dL (9.0-27.0); Calcium 8.7 mg/dL (8.7-10.3); Chloride 106 mmol/L (96-109); Glucose 111 mg/dL (70-110); Magnesium 1.9 mg/dL (1.5-2.4); Potassium 3.7 mmol/L (3.5-5.5); Sodium 141 mmol/L (135-145)
[2024-02-01 10:54] LABS: Basophils # (A) 0.04 X 10*3/uL (0.00-0.10); Basophils % (A) 0.5 %; Eosinophils # (A) 0.47 X 10*3/uL (0.04-0.35); Eosinophils % (A) 5.7 %; HGB 10.1 g/dL (12.0-15.0); Lymphocytes # (A) 1.27 X 10*3/uL (0.90-5.00); Lymphocytes % (A) 15.4 %; MCH 27.2 pg (27.0-32.0); MCHC 31.6 g/dL (32.0-37.0); MCV 86.3 FL (80.0-97.0); Mean Platelet Volume 11.1 FL (9.5-12.2); Monocytes % (A) 8.5 %; NRBC Per 100 WBC 0 X 10*3/uL (0.00-0.01); Neutrophils # (A) 5.72 X 10*3/uL (1.80-7.70); Neutrophils % (A) 69.3 %; Platelet Count 211 X 10*3/uL (140-440); RBC 3.71 X 10*6/uL (4.10-5.20); RDW 15.9 % (11.5-14.5); WBC 8.25 X 10*3/uL (4.50-10.00)
[2024-02-01] MEDS: LACTULOSE 20 GM/30 ML CUP PO ONE (11:20)
--- NOTE | 2024-02-01 11:28 | P.PN ---
Subjective Progress Note Date: 02/01/24 Principal diagnosis: Right TKA Patient is seen at bedside this morning. She is postop day #3 from right total knee arthroplasty. She has pain at the surgical site as expected but denies any new complaints. She denies numbness, tingling or calf pain. Review of systems is negative for fever, chills, chest pain, shortness of breath or other Objective - Vital Signs Vital signs: Vital Signs Temp 98.6 F 02/01/24 06:45 Pulse 85 02/01/24 06:45 Resp 16 02/01/24 06:45 BP 129/80 02/01/24 06:45 Pulse Ox 90 L 02/01/24 06:50 FiO2 Intake & Output 01/31/24 02/01/24 02/01/24 18:59 06:59 18:59 Other: # Voids 1 1 - Exam Inspection reveals a benign surgical wound. There is no active bleeding or drainage. Neurovascular status is intact throughout the lower extremity with motor and sensation fully intact. Calf is soft and nontender. 2+ dorsalis pedis pulse and less than 2 second cap refill is present. - Constitutional General appearance: Present: no acute distress - Labs CBC & Chem 7: 02/01/24 05:20 02/01/24 05:20 Labs: Abnormal Lab Results - Last 24 Hours (Table) 02/01/24 02/01/24 Range/Units 05:20 05:20 RBC 3.71 L (4.10-5.20) X 10*6/uL Hgb 10.1 L (12.0-15.0) g/dL Hct 32.0 L (37.2-46.3) % MCHC 31.6 L (32.0-37.0) g/dL RDW 15.9 H (11.5-14.5) % Immature Gran # 0.05 H (0.00-0.04) X 10*3/uL Eosinophils # 0.47 H (0.04-0.35) X 10*3/uL Glucose 111 H (70-110) mg/dL Assessment and Plan (1) Osteoarthritis of right knee Narrative/Plan: She will continue with routine postop orthopedic protocol including pain management, wound care, PT, DVT prophylaxis and medical management. Expect that she will transfer to [facility] in next 1-2 days Status: Acute Priority: Medium Code(s): M17.11 - UNILATERAL PRIMARY OSTEOARTHRITIS, RIGHT KNEE SNOMED Code(s): 305154691697004 Time with Patient: Less than 30
[2024-02-02 09:14] VITALS: BP 135/85; RESP 16; TEMP 98.2
[2024-02-02 09:15] VITALS: PULSE 80
--- NOTE | 2024-02-02 09:44 | P.DS ---
Providers Date of admission: 01/29/24 12:05 Expected date of discharge: 02/02/24 Attending physician: Shahriar Cho Consults: 01/29/24 12:15 Consult Physician Routine Consulting Provider: Kenneth Loza Consult Reason/Comments: post op medical management Do you want consulting provider notified?: Yes Primary care physician: Jorge Chase - Discharge Diagnosis(es) (1) Osteoarthritis of right knee Patient was admitted to the OR on 01/29/24 to undergo a right total knee arthroplasty. She had failed conservative measures as an outpatient and desired to proceed with elective surgery after given informed consent. She underwent the above procedure which she tolerated well without complication. Postoperative hospital course has remained without complication. On day of discharge she is afebrile, vital signs stable, labs within acceptable ranges, tolerating by mouth meds and diet, voiding without difficulty, positive flatus, denies abdominal pain or calf pain, pain is controlled on oral pain medication and has no new complaints. Wound is benign, neurovascular status is intact, calf is soft and nontender, abdomen soft and nontender. Review of systems is negative for numbness, tingling, fever, chills, chest pain, shortness of breath, nausea, vomiting, dizziness, headaches, slurred speech or other. Current Visit: Yes Status: Acute Priority: Medium Procedures: Right TKA Patient Condition at Discharge: Good Plan - Discharge Summary Discharge Rx Participant: Yes New Discharge Prescriptions: New Aspirin [Adult Low Dose Aspirin EC] 81 mg PO BID #60 tab Docusate [Colace] 100 mg PO BID #60 capsule HYDROcodone/APAP 7.5-325MG [Mars 7.5-325] 1 - 2 tab PO Q6HR PRN #32 tab PRN Reason: Pain Ondansetron [Zofran] 4 mg PO Q8HR PRN #21 tab PRN Reason: Nausea Continue amLODIPine BESYLATE [Norvasc] 2.5 mg PO HS Budesonide-Formot 160-4.5 Mcg [Symbicort 160-4.5 Mcg Inhaler] 2 puff INHALATION BID QUEtiapine [SEROquel] 25 mg PO HS Sertraline [Zoloft] 50 mg PO DAILY Cholecalciferol [Vitamin D3 (25 Mcg = 1000 Iu)] 25 mcg PO DAILY Ascorbic Acid [Vitamin C] 1,000 mg PO DAILY Losartan [Cozaar] 50 mg PO HS No Action traMADol HCL 50 mg PO Q4H PRN PRN Reason: Pain Ibuprofen [Motrin] 400 mg PO Q6HR PRN PRN Reason: Pain Discharge Medication List amLODIPine BESYLATE [Norvasc] 2.5 mg PO HS 02/08/14 [History] Ascorbic Acid [Vitamin C] 1,000 mg PO DAILY 01/26/24 [History] Budesonide-Formot 160-4.5 Mcg [Symbicort 160-4.5 Mcg Inhaler] 2 puff INHALATION BID 01/26/24 [History] Cholecalciferol [Vitamin D3 (25 Mcg = 1000 Iu)] 25 mcg PO DAILY 01/26/24 [History] Ibuprofen [Motrin] 400 mg PO Q6HR PRN 01/26/24 [History] Losartan [Cozaar] 50 mg PO HS 01/26/24 [History] QUEtiapine [SEROquel] 25 mg PO HS 01/26/24 [History] Sertraline [Zoloft] 50 mg PO DAILY 01/26/24 [History] traMADol HCL 50 mg PO Q4H PRN 01/26/24 [History] Aspirin [Adult Low Dose Aspirin EC] 81 mg PO BID #60 tab 02/01/24 [Rx] Docusate [Colace] 100 mg PO BID #60 capsule 02/01/24 [Rx] HYDROcodone/APAP 7.5-325MG [Mars 7.5-325] 1 - 2 tab PO Q6HR PRN #32 tab 02/01/24 [Rx] Ondansetron [Zofran] 4 mg PO Q8HR PRN #21 tab 02/01/24 [Rx] Follow up Appointment(s)/Referral(s): Shahriar Cho MD [STAFF PHYSICIAN] - 10 Days Activity/Diet/Wound Care/Special Instructions: Weight bear as tolerated May shower after 3 days if no bleeding Keep wound clean and dry Take meds as directed F/U with Dr. Cho in office Discharge Disposition: TRANSFER TO [facility]
--- NOTE | 2024-02-02 10:38 | P.PN ---
Subjective Progress Note Date: 02/02/24 Hospital course: Patient is a very pleasant 63-year-old female with a past medical history of osteoarthrosis, hypertension, asthma, and anxiety with depression. She is currently admitted under orthopedic surgery team status post elective right total knee arthroplasty completed by Dr. Cho on 01/29/2024. We were consulted for medical management throughout hospitalization. Physical exam: Patient seen and fully evaluated at bedside this morning. Patient sitting up in chair this morning with legs elevated. She reports feeling much better today when compared to the last 2 days. Patient reports she is finally starting to feel positive about surgery and recovery. Plans to go to rehab at [facility] later today. Medically, patient is stable for discharge at this time. Vital signs reviewed and stable. General: Nontoxic, no distress and appears stated age. Derm: Skin warm and dry, normal coloration for ethnicity. Head: Atraumatic, normocephalic and symmetric. Eyes: EOMs intact, no lid lag, and anicteric sclera Mouth: no lip lesions, mucus membranes moist Cardiovascular: regular rate and rhythm with normal S1S2, no murmur, positive posterior tibial pulses bilaterally, and cap refill < 2 seconds. Lungs: Respirations even, regular, and unlabored on room air. Lungs CTA bilaterally, no rhonchi, no rales, no wheezing, and no accessory muscle usage. Abdominal: soft, nontender to palpation, no guarding, no appreciable organomegaly Ext: No gross muscle atrophy, no edema, no contractures. Movement and sensation intact. Patient with postoperative dressing and ice pack to right knee. Neuro: Speech clear, face symmetrical and CN II-XII grossly intact with no noted focal neuro deficits Psych: Alert and oriented to person, place, time, and situation. Appropriate and pleasant affect. Assessment and Plan of Care: Status post right total knee arthroplasty secondary to severe right knee osteoarthrosis Management per primary admitting orthopedic surgery team including DVT prophylaxis, pain management, wound/dressing changes, weightbearing, and PT/OT. DVT prophylaxis currently with aspirin 81 mg twice daily. Acute postoperative blood loss anemia Stable and expected finding with postoperative hemoglobin of 10.1 and preoperative hemoglobin of 13.6 drawn on 01/15/2024. No need for transfusion or further interventions at this time. Constipation, resolved Hypertension Continue daily medication regimen with amlodipine 2.5 mg nightly and losartan 50 mg nightly. Anxiety with depression Continue daily medication regimen with Seroquel 25 mg nightly and Zoloft 50 mg daily. Asthma, not in acute exacerbation Continue daily medication regimen with Symbicort 160-4.5 mcg inhaler 2 puffs twice daily and patient placed on DuoNebs as needed for wheezing/shortness of breath. Data and imaging reviewed: -Labs reviewed. CBC showing stable acute blood loss anemia with hemoglobin of 10.1. BMP unremarkable with sodium 141, potassium 3.7, BUN of 11.3, and creatinine of 0.6 with GFR of 100. Blood glucose 111. Magnesium 1.9. -Vital signs reviewed. Blood pressure 127/76, heart rate 74, respiratory rate 20, temp 98.1 F, and SpO2 of 98% on room air. Patient medically optimized and cleared for discharge once cleared by primary admitting orthopedic surgery team. Discussed with case management and orthopedic PA, plans for discharge to [facility] rehab facility later today. Thank you for allowing us to participate in the care of this pleasant patient. Do not hesitate to contact us with questions. Someone can be reached from the [facility] hospitalist group all hours of the day at [phone] or via [employer]. Patient was seen independently by Nurse Pracitioner. This document was prepared using [employer] dictation software. Please allow for errors in salesforce consultant, while rare they do occur. Quinten Jenkins NP rendered care for this patient independently, reviewed the findings and plan as documented in the note above. I did not physically speak with or examine the patient on this date. Objective - Vital Signs Vital signs: Vital Signs Temp 98.1 F 02/02/24 01:05 Pulse 74 02/02/24 01:05 Resp 20 02/02/24 01:05 BP 127/76 02/02/24 01:05 Pulse Ox 98 02/02/24 01:05 FiO2 Intake & Output 02/01/24 02/02/24 02/02/24 18:59 06:59 18:59 Intake Total 520 Balance 520 Intake: Oral 520 Other: Voiding Method Toilet Toilet # Voids 1 2 # Bowel Movements 1 - Labs CBC & Chem 7: 02/01/24 05:20 02/01/24 05:20 Labs: Abnormal Lab Results - Last 24 Hours (Table) 02/01/24 02/01/24 Range/Units 05:20 05:20 RBC 3.71 L (4.10-5.20) X 10*6/uL Hgb 10.1 L (12.0-15.0) g/dL Hct 32.0 L (37.2-46.3) % MCHC 31.6 L (32.0-37.0) g/dL RDW 15.9 H (11.5-14.5) % Immature Gran # 0.05 H (0.00-0.04) X 10*3/uL Eosinophils # 0.47 H (0.04-0.35) X 10*3/uL Glucose 111 H (70-110) mg/dL
== END 2024-02-02 13:43 ==
LOC: OR 07:58 → 4SSUR 12:05 → OR 12:05 → 4SSUR 12:13
PROVIDERS: ADMIT Orthopaedic Surgery Sports Medicine; ATTEND Orthopaedic Surgery Sports Medicine
DX: M17.11 Unilateral primary osteoarthritis, right knee (principal); M21.161 Varus deformity, not elsewhere classified, right knee; I10 Essential (primary) hypertension; J44.89 Other specified chronic obstructive pulmonary disease; F32.A Depression, unspecified; E66.9 Obesity, unspecified; Z68.33 Body mass index [BMI] 33.0-33.9, adult; Z79.51 Long term (current) use of inhaled steroids; Z79.899 Other long term (current) drug therapy; Z87.891 Personal history of nicotine dependence; Z90.710 Acquired absence of both cervix and uterus; Z98.890 Other specified postprocedural states
CPT/HCPCS: 94640 ×3; 94760; 97530; 97162; 97166; 64999; 64448; 80048; 83735; 85025; 73560; 27447; G0378; C1776; C1713; C1751; J2250; J1100; J0690 ×3; J2405; J3010; J2795; J2704; J1170 ×2

== ENCOUNTER → 2024-03-24 | Outpatient (CLI) | payer MEDICARE ==
--- NOTE | 2024-03-24 13:30 | US ---
EXAMINATION TYPE: US venous doppler duplex LE RT DATE OF EXAM: 03/24/2024 1:11 PM COMPARISON: US 2018 CLINICAL INDICATION: Female, 63 years old with history of I82.401 EMBOLISM; Hx SVT. Pain x 1 week. SIDE PERFORMED: Right TECHNIQUE: The lower extremity deep venous system is examined utilizing real time linear array sonog billy with graded compression, doppler sonography and color-flow sonography. VESSELS IMAGED: Common Femoral Vein Deep Femoral Vein Greater Saphenous Vein * Femoral Vein Popliteal Vein Small Saphenous Vein * Proximal Calf Veins (* superficial vessels) Right Leg: Thrombus was seen within GSV at the high thigh level. Color defect visualized within. In ternal echoes are seen within the GSV greater than 2 cm away from the junction with the CFV. No evidence of DVT. IMPRESSION: No evidence for DVT. Positive SVT noted.
== END | disposition home or self-care (01) ==
LOC: RADUSWWP 12:36
PROVIDERS: ATTEND Family Medicine
DX: I82.401 Acute embolism and thrombosis of unspecified deep veins of right lower extremity (principal)

== ENCOUNTER 2024-10-21 05:40 | Observation (INO) | payer MEDICARE ==
[2024-10-18 12:03] VITALS: BMI 28.5
[~2024-10-21 05:40] MED LIST changes: -HYDROmorphone 0.5 MG/0.5 ML SYRINGE IVP PRN; -METOCLOPRAMIDE 5 MG/ML 2 ML VIAL IVP PRN; -MIDAZOLAM 2 MG/2 ML VIAL IV PRN; +ONDANSETRON 4 MG/2 ML VIAL IVP PRN; -fentaNYL (PF) 50 MCG/ML 2 ML AMP IV PRN; -fentaNYL (PF) 50 MCG/ML 2 ML AMP IVP PRN
[2024-10-21] MEDS ORDERED: fentaNYL (PF) 50 MCG/ML 2 ML AMP IVP PRN (05:46)
[2024-10-21] MEDS ORDERED: HYDROmorphone 0.5 MG/0.5 ML SYRINGE IVP PRN ×2 (05:46→07:18)
[2024-10-21] MEDS: GABAPENTIN 300 MG CAP PO PRN (06:13)
[2024-10-21] MEDS: ACETAMINOPHEN TAB 500 MG TAB PO PRN (06:13)
[2024-10-21] MEDS: MELOXICAM 7.5 MG TAB PO PRN (06:14)
[2024-10-21] MEDS: LIDOCAINE 1% (10MG/ML) FOR IV START INTRADERMA PRN (06:14)
[2024-10-21] MEDS: LACTATED RINGERS 1,000 ML IV SCH ×2 (06:14→12:29)
[2024-10-21] MEDS: IV FLUID CONTINUATION 1,000 ML IV ONE (06:14)
[2024-10-21] MEDS: DEXAMETHASONE SOD PHOSPHATE 4 MG/ML 1 ML VIAL IV ONE (06:15)
[2024-10-21] MEDS: ONDANSETRON 4 MG/2 ML VIAL IVP ONE (06:15)
[2024-10-21] MEDS: MIDAZOLAM 2 MG/2 ML VIAL IV PRN (06:39)
[2024-10-21] MEDS ORDERED: PROPOFOL 10 MG/ML 20 ML VIAL IV ONE (07:02)
[2024-10-21] MEDS ORDERED: DEXAMETHASONE SOD PHOSPHATE 4 MG/ML 1 ML VIAL ONE (07:02)
[2024-10-21] MEDS ORDERED: TRANEXAMIC 1,000 MG/100ML-NACL PREMIX BAG ONE (07:02)
[2024-10-21] MEDS ORDERED: MIDAZOLAM 2 MG/2 ML VIAL ONE (07:02)
[2024-10-21] MEDS ORDERED: fentaNYL (PF) 50 MCG/ML 2 ML AMP ONE (07:02)
[2024-10-21] MEDS ORDERED: ROPIVACAINE 5 MG/ML 30 ML VIAL ONE (07:02)
[2024-10-21] MEDS ORDERED: NALOXONE 0.4 MG/ML 1 ML VIAL IV PRN (07:18)
[2024-10-21] MEDS ORDERED: MAGNESIUM HYDROXIDE 2,400 MG/30 ML CUP PO PRN (07:18)
[2024-10-21] MEDS ORDERED: NA PHOS,M-B/NA PHOS,DI-BA 133 ML ENEMA RECTAL PRN (07:18)
[2024-10-21] MEDS ORDERED: ONDANSETRON 4 MG/2 ML VIAL IVP PRN (07:18)
[2024-10-21] MEDS ORDERED: ACETAMINOPHEN TAB 325 MG TAB PO PRN (07:18)
[2024-10-21] MEDS: ceFAZolin 3,000 MG in SODIUM CHLORIDE 0.9% IRRIGATIO 3,000 ML IRRIGATION ONE (07:30)
[2024-10-21] MEDS: LACTATED RINGERS 1,000 ML IV ONE (08:48)
--- NOTE | 2024-10-21 09:33 | XR ---
EXAMINATION TYPE: XR knee limited LT DATE OF EXAM: 10/21/2024 CLINICAL HISTORY: Left knee pain and arthritis status post total knee replacement. TECHNIQUE: Portable AP and crosstable lateral views of the left knee are obtained immediately postop eratively. COMPARISON: None FINDINGS: Metallic hardware from total left knee arthroplasty is seen and appears satisfactory in al ignment and position. There is evidence of recent surgery with diffuse subcutaneous gas and soft tis weston swelling noted extending superiorly. Demineralization is present. IMPRESSION: METALLIC HARDWARE FROM TOTAL left KNEE ARTHROPLASTY IS SATISFACTORY IN ALIGNMENT. [facility], , 10/21/2024 9:31 AM
[2024-10-21] MEDS: ROPIVACAINE 1,100 MG, SODIUM CHLORIDE 0.9% 500 ML 330 ML, EMPTY PAIN BALL 1 EACH MISCELLANE PRN (09:38)
--- NOTE | 2024-10-21 11:48 | OP ---
OPERATIVE REPORT DATE OF SERVICE : 10/21/2024 PREOPERATIVE DIAGNOSIS: Left knee osteoarthrosis. POSTOPERATIVE DIAGNOSIS: Left knee osteoarthrosis. OPERATION: Left total knee arthroplasty. ANESTHESIA: Spinal with sedation. ESTIMATED BLOOD LOSS: 100 mL. TOURNIQUET TIME: 50 minutes at 250 mmHg. COMPLICATIONS: None apparent. DRAINS: None. DISPOSITION: Postanesthesia care unit. INDICATIONS: Marta is a very pleasant 63-year-old female with longstanding history of left knee pain. History and physical examination are consistent with advanced left knee osteoarthrosis. She has been through significant nonoperative management up to this point. Further treatment options were discussed, and she has decided to go forward with a left total knee arthroplasty. Risks of procedure were discussed with her in detail. These risks included, but were not limited to risk of infection, nerve damage, bleeding, pain, and a small risk of deep vein thrombosis which could lead to fatal pulmonary embolism. There is also small risk of loosening of the implant which could require revision operation. The patient understands these risks. All of her questions with regard to the risks of procedure were answered to her satisfaction. Appropriate informed consent was obtained. DESCRIPTION OF PROCEDURE: The patient was identified in the preoperative holding area. Surgical site was marked by both the patient and myself. She was given 2 g of Ancef IV for prophylactic purposes. She was then transported to the operative suite. She was placed supine on the operating room table. Spinal anesthetic was then administered, and dosed per the Anesthesia Department without apparent complication. Examination under anesthesia was then performed. The patient was 2 to 3 degrees shy of full extension. She had 100 degrees of flexion in the medial collateral ligament, lateral collateral ligament and posterior cruciate ligaments were stable. Tourniquet was then placed high on the left upper thigh, well-padded in preparation for surgery. The patient's left lower extremity was then prepped and draped in usual sterile fashion. Standard surgical pause undertaken to ensure that we were operating the correct site and that appropriate preoperative antibiotics had been given. All staff in the room in agreement, and we proceeded. The outlines of the patella were marked with a surgical pen. A planned 12 cm vertical incision centered over the patella was marked with a surgical pen. Leg was then exsanguinated with an Esmarch dressing. The knee was then flexed, and tourniquet was inflated to 250 mmHg. Total tourniquet time for the procedure was 50 minutes. Incision was then made with a 10-blade scalpel. Dissection was carried down sharply to the overlying fascia. Great care was taken to minimize the skin flaps. The knee was then exposed using a standard medial parapatellar approach. A small cuff of quadriceps tendon was then left for suturing. She was in quite a bit of valgus preoperatively. A very minimal medial release was done. This was done just enough to place the medial retractor. The medial meniscus was excised as well. The lateral meniscus was also released anteriorly. Leg was then externally rotated. The patella was everted. The knee was flexed. Retractors were then placed to protect the collateral ligaments. I then proceeded to remove the infrapatellar fat pad. This was excised sharply tangentially with fibers of the patellar tendon. I then proceeded to remove the peripheral osteophytes. This was done with a rongeur. I then proceeded with the distal femoral resection. She did have near full extension. A planned 9 mm resection was then done. The femoral canal was then entered in the midline of the femur approximately 10 mm anterior to the origin of the posterior cruciate ligament. The rosenda was then advanced down the center of the femur and placed intramedullary. Based on the preoperative radiographs, the angle between the anatomic and mechanical axis of the femur was approximately 4 to 5 degrees. The valgus angle of the distal femoral cutting guide was then set at 4 degrees for the left knee. The distal femoral cutting guide was then advanced over the intramedullary rosenda. This was seated firmly against the femur. Then, as mentioned, planned to take 9 mm off the distal femur. The cutting block was then secured onto the femur with pins. Jig was then removed. The distal femoral cut was made through the slot of the block. The pins were removed and the distal femoral cutting block was removed. The accuracy of the distal femoral cuts was checked with 2 flat bars. I then proceeded with femoral sizing. Posterior referencing sizing guide was held firmly against the resected distal surface of the femur. The posterior condyles were resting on the posterior plane of the guide. The sizing site was then placed on the anterior femur. The size was measured as a size 8. I then assessed for femoral rotation. The plan was for 3 degrees of external rotation. Three degrees of external rotation was placed onto the jig. These holes were then marked. We then confirmed the rotation by 3 separate methods. This was done using epicondylar axis as well as [place] line and posterior referencing. It was deemed that the external rotation was proper. I then went forward and placed the femoral cutting block. This was placed over the previously placed pin holes. The Lakhwinder wing was then placed onto the anterior slots to ensure that we would not notch the anterior femur with the anterior femoral cut. I then proceeded with the anterior femoral cut. This was flushed with the anterior cortex of the femur. The posterior cuts were then made followed by the anterior chamfer cut, then the posterior chamfer cut. The cutting block was then removed. Throughout the resection, the collateral ligaments were protected with retractors. I then placed a trial size 8 femur. It was slightly wide, but the narrow fit very nicely, and it fit flush with the distal end of the femur. The drill hole was then made. I then proceeded with the tibial cut. I planned for cruciate-retaining knee. The guide was placed and set for varus and valgus and for slope. Height was set for approximate 2 mm resection from the medial tibial plateau, which was the lower side. I was happy with the alignment and amount of resection. The cutting block was then pinned to the proximal tibia. The alignment rosenda was removed and the proximal tibia was resected with a reciprocating saw. Again, this was done with retractors protecting the collateral ligaments as well as the posterior cruciate ligament. I then proceeded to evaluate the flexion and extension gaps. A 10 mm block was then placed. The flexion and extension gaps were equal. I then proceeded with resection of posterior osteophytes. She had very minimal posterior osteophytes. This was done using a curved osteotome. This resected the posterior osteophytes, and posterior capsular stripping was done off the posterior aspect of the femur at this time. The osteophytes were then removed. I then proceeded with resection of the patella. The thickness of the patella was measured using the caliper. The thickness was 22 mm. The thickness of the anticipated patellar dome was taken into account. The resection was then performed and confirmed to be equal in 4 quadrants using a caliper. Approximately 14 mm of bone remained after resection. A 29 x 8 standard patellar trial was then placed. The holes were drilled and the trial was then placed. I then proceeded with sizing tibial plate. A size D tibial plate fit very nicely. I then placed the trial femur, the tibial tray, and the patellar button. A 10 mm trial tibial insert was also placed. The components fit very nicely. She had full extension and flexion. The extension and flexion gaps were equal and stable to both varus and valgus stress. The patella tracked appropriately. The tibial tray rotation was then marked with a Bovie. This was externally rotated properly. I then proceeded with tibial preparation. I first drilled the femoral holes and removed the femoral component. The tibial tray was then set for proper external rotation as well as medial and lateral placement onto the tibia. It was then pinned into place. I then proceeded with punching the keel. I then decided to proceed with cementing of all our components. The knee was thoroughly irrigated with sterile saline solution via pulse lavage. The lateral geniculate artery was then identified and cauterized. All blood was removed from the bone of the tibia, femur, and patella with pulsed lavage. I then proceeded with cementing. Two packs of antibiotic bone cement prepared on the back table by surgical forceps fabricator. I then proceeded with cementing of the tibia first. Cement was impacted into the keel as well as deeply seated into the bone. A second coat of cement was then placed. The tibia was then impacted into place. Excess cement was removed with [place]'s and Jokers. I then proceeded with cementing of the femoral component. The femoral component was also cemented using standard technique. Excess cement was removed. A 10 mm trial insert was then placed into the knee. It was brought into full extension with a constant axial load placed until the cement had hardened. The patellar component was then cemented. This held firmly with compressive device until the cement had dried. When the cement had dried, the knee was taken out of extension. All excess cement was removed from around the prosthesis. I then trialed the knee with a 10 mm insert. Flexion and extension gaps were appropriate. I then trialed with a 12 mm insert. Flexion and extension gaps felt better. The knee was stable with a 12 mm insert. It came into full extension. I decided to go forward with a 12 mm medial congruent cross- linked cruciate-retaining tibial insert. Polyethylene was then placed on the tibial tray and locked into place. The knee was then reduced. The knee was again further irrigated with sterile saline solution with antibiotic added. The tourniquet was then deflated. Total tourniquet time for the procedure was 50 minutes at 250 mmHg. Final components were Mick Persona, size 8, narrow, cruciate-retaining femoral component, a size D tibial tray, a 12 mm medial congruent cruciate-retaining polyethylene insert, and a 29 x 8 mm patella. I then proceeded with closure. Again, the knee was thoroughly irrigated. The quadriceps tendon and the medial retinaculum were reapproximated with #2 Ethibond suture. The extensor mechanism was then closed with a running #2 Quill suture. Subcutaneous tissues were closed with 2-0 Vicryl interrupted suture. The skin was closed with a running 3-0 Quill suture. Dermabond was applied to the incision. Sterile compressive dressings were then applied. All sponge and needle counts deemed correct prior to closure. The patient tolerated the procedure without apparent complication. She was transferred to recovery room in stable condition. MMODL / IJN: [id number] /
[2024-10-21] MEDS: HYDROmorphone 1 MG/ML 1 ML SYRINGE IVP PRN (13:10)
--- NOTE | 2024-10-21 14:28 | P.CONS ---
History of Present Illness - Reason for Consult Consult date: 10/21/24 - History of Present Illness Patient is a 63-year-old female with history of hypertension, depression, asthma, DVT on Eliquis presenting for elective total left knee arthroplasty. [facility] physicians consulted for medical management. Currently denies any chest pain, shortness of breath, abdominal pain, nausea, vomiting, urinary or bowel complaints. Temperature 97.4, pulse 64, blood pressure 150/66, respiratory rate 16, saturating at 93% on room air. Pertinent positives and negatives as discussed in HPI, a complete review of systems was performed and all other systems are negative. Patient seen and examined at bedside. Vital signs reviewed General: nontoxic, no distress, appears at stated age Derm: warm, dry, knee dressing clean, dry, intact Head: atraumatic, normocephalic, symmetric Eyes: EOMI, no lid lag, anicteric sclera, pupils equal round reactive to light ENT: Nose and ears atraumatic Neck: No thyromegaly, supple Mouth: no lip lesion, mucus membranes moist Cardiovascular: S1S2 reg, no murmur, no edema Lungs: clear to auscultation bilateral, no rhonchi, no rales, no wheeze, no accessory muscle use Abdominal: soft, nontender to palpation, no guarding, no appreciable organomegaly Ext: no gross muscle atrophy, muscle strength muscle strength 5 out of 5 in all 4 extremities, no contractures Neuro: CN II-XII grossly intact Psych: Alert, oriented, appropriate affect Assessment/Plan: Status post left total knee arthroplasty -On oral Tylenol as needed, tramadol as needed, IV Dilaudid as needed, oral [place] as needed, monitor for sedation -Bowel regimen per orthopedic surgery -Currently on aspirin 81 mg twice daily for DVT prophylaxis, consider changing 80 back to Eliquis given history of DVTs -CBC tomorrow History of provoked DVT -Currently patient on aspirin 81 mg twice daily per orthopedic surgery -Consider restarting Eliquis instead Hypertension -Continue amlodipine 2.5 nightly, losartan 50 nightly Depression -Continue sertraline 50 daily, Seroquel 25 nightly Asthma, not in exacerbation -Continue Symbicort twice daily Thank you for allowing us to participate in the care of this pleasant patient. Do not hesitate to contact us with questions. Someone can be reached from the [facility] hospitalist group all hours of the day at [phone] or via [employer]. Past Medical History Past Medical History: Asthma, Hypertension Additional Past Medical History / Comment(s): Anxiety, varicose veins. History of Any Multi-Drug Resistant Organisms: None Reported Past Surgical History: Breast Surgery, Hysterectomy Additional Past Surgical History / Comment(s): RIGHT SIDE BREAST LUMPECTOMY, surgery on varicose veins. Total R knee. Past Anesthesia/Blood Transfusion Reactions: No Reported Reaction Additional Past Anesthesia/Blood Transfusion Reaction / Comm: slow to wake up Smoking Status: Former smoker - Past Family History Mother Family Medical History: Myocardial Infarction ([place]) Additional Family Medical History / Comment(s): Father had Parkinson's Medications and Allergies Home Medications Medication Instructions Recorded Confirmed Type amLODIPine BESYLATE [Norvasc] 2.5 mg PO HS 02/08/14 10/18/24 History Ascorbic Acid [Vitamin C] 1,000 mg PO DAILY 01/26/24 10/18/24 History Budesonide-Formot 160-4.5 Mcg 2 puff INHALATION BID 01/26/24 10/18/24 History [Symbicort 160-4.5 Mcg Inhaler] Cholecalciferol [Vitamin D3 (25 25 mcg PO DAILY 01/26/24 10/18/24 History Mcg = 1000 Iu)] Losartan [Cozaar] 50 mg PO HS 01/26/24 10/18/24 History QUEtiapine [SEROquel] 25 mg PO HS 01/26/24 10/18/24 History Sertraline [Zoloft] 50 mg PO DAILY 01/26/24 10/18/24 History Apixaban [Eliquis] 5 mg PO BID 10/18/24 10/18/24 History traMADol HCL 50 mg PO Q6H PRN 10/18/24 10/18/24 History Allergies Allergy/AdvReac Type Severity Reaction Status Date / Time No Known Allergies Allergy Verified 10/18/24 11:46 Physical Exam Vitals: Vital Signs Temp Pulse Resp BP Pulse Ox 10/21/24 12:00 64 16 150/66 93 L 10/21/24 11:30 55 L 16 141/76 92 L 10/21/24 11:10 55 L 16 144/64 95 10/21/24 10:41 54 L 16 149/75 94 L 10/21/24 10:28 55 L 16 139/71 96 10/21/24 10:09 54 L 16 143/65 95 10/21/24 09:36 54 L 16 138/67 94 L 10/21/24 09:21 56 L 14 139/65 98 10/21/24 09:06 97.4 F L 62 14 140/69 100 10/21/24 06:50 75 16 145/70 99 10/21/24 06:14 97.6 F 69 16 170/87 95 Intake and Output 10/20/24 10/21/24 10/21/24 22:59 06:59 14:59 Intake Total 300 1551 Output Total 100 Balance 300 1451 Intake: IV 300 1551 Output: Estimated Blood Loss 100 Other: Weight 93.5 kg 93.5 kg
--- NOTE | 2024-10-21 20:08 | P.ANPRN ---
Procedure Note - Anesthesia - Nerve Block Performed Left Adductor Canal Infusion Time Out Performed: Yes Date of Procedure: 10/21/24 Procedure Start Time: 06:39 Procedure Stop Time: 06:47 Location of Patient: PreOp Indication: Acute Post-Operative Pain, Requested by Surgeon Sedation Type: Sedate with meaningful contact maintained Preparation: Sterile Prep, Sterile Dressing Position: Supine Catheter: Indwelling Needle Types: Pajunk Needle Gauge: 21 Ultrasound used to visualize needle placement: Yes Ultrasound used to observe medication spread: Yes Blood Aspirated: No Pain Paresthesia on Injection Noted: No Resistance on Injection: Normal Image Stored and Saved: Yes Events: Uneventful and Well Tolerated (Ropivacaine 0.5% 20 cc plus dexamethasone 4 mg)
--- NOTE | 2024-10-21 20:10 | P.ANPRN ---
Procedure Note - Anesthesia - Nerve Block Performed Left iPack Single Time Out Performed: Yes Date of Procedure: 10/21/24 Procedure Start Time: 06:48 Procedure Stop Time: 06:51 Location of Patient: PreOp Indication: Acute Post-Operative Pain, Requested by Surgeon Sedation Type: Sedate with meaningful contact maintained Preparation: Sterile Prep Position: Right Lateral Needle Types: Pajunk Needle Gauge: 21 Ultrasound used to visualize needle placement: Yes Ultrasound used to observe medication spread: Yes Blood Aspirated: No Pain Paresthesia on Injection Noted: No Resistance on Injection: Normal Image Stored and Saved: Yes Events: Uneventful and Well Tolerated (Ropivacaine 0.5% 20 cc plus dexamethasone 4 mg)
[2024-10-21] MEDS: ASPIRIN 81 MG PO SCH (20:42)
[2024-10-21] MEDS: QUEtiapine 25 MG TAB PO SCH (20:42)
[2024-10-21] MEDS: LOSARTAN 50 MG TAB PO SCH (20:42)
[2024-10-21] MEDS: amLODIPine 2.5 MG TAB PO SCH (20:42)
[2024-10-21] MEDS: SENNOSIDES-DOCUSATE SODIUM 1 EACH TAB PO SCH (20:42)
[2024-10-21] MEDS: SYMBICORT 160-4.5 MCG INHALER INHALATION SCH (21:13)
[2024-10-22] MEDS: HYDROcodone/APAP 7.5-325MG 1 EACH TAB PO PRN ×2 (00:39→06:12)
--- NOTE | 2024-10-22 06:57 | P.PN ---
Progress Note - Text 10/22/24 648am 63-year-old female status post total knee replacement. Patient has an On-Q pump for postop pain control with a solution running at 8 cc an hour with a VAS of 3. Dressing clean dry and intact. Plan to continue On-Q pump infusion
[2024-10-22] MEDS: SERTRALINE 50 MG TAB PO SCH (08:27)
[2024-10-22] MEDS: HYDROmorphone 0.5 MG/0.5 ML SYRINGE IVP PRN (09:15)
[2024-10-22 10:33] LABS: Basophils # (A) 0.01 X 10*3/uL (0.00-0.10); Basophils % (A) 0.1 %; Eosinophils # (A) 0.01 X 10*3/uL (0.04-0.35); Eosinophils % (A) 0.1 %; HCT 35.1 % (37.2-46.3); HGB 10.8 g/dL (12.0-15.0); Lymphocytes # (A) 1.06 X 10*3/uL (0.90-5.00); Lymphocytes % (A) 11.2 %; MCH 27.5 pg (27.0-32.0); MCHC 30.8 g/dL (32.0-37.0); MCV 89.3 FL (80.0-97.0); Mean Platelet Volume 11.5 FL (9.5-12.2); Monocytes % (A) 13.8 %; NRBC Per 100 WBC 0 X 10*3/uL (0.00-0.01); Neutrophils # (A) 7.03 X 10*3/uL (1.80-7.70); Neutrophils % (A) 74.4 %; Platelet Count 264 X 10*3/uL (140-440); RBC 3.93 X 10*6/uL (4.10-5.20); RDW 16.4 % (11.5-14.5); WBC 9.45 X 10*3/uL (4.50-10.00)
--- NOTE | 2024-10-22 11:47 | P.PN ---
Subjective Progress Note Date: 10/22/24 Subjective: Patient seen and examined at bedside. No acute events overnight. Pertinent positives and negatives as discussed above, a complete review of systems was performed and all other systems are negative. Vitals Signs Reviewed. General: Nontoxic, no distress, appears at stated age Derm: Warm, dry, dressing clean, dry, intact Head: Atraumatic, normocephalic, symmetric Eyes: EOMI, no lid lag, anicteric sclera Mouth: No lip lesion, mucus membranes moist Cardiovascular: S1S2 reg, no murmur Lungs: CTA bilateral, no rhonchi, no rales, no accessory muscle use Abdominal: Soft, nontender to palpation, no guarding, no appreciable organomegaly Ext: No gross muscle atrophy, no edema, no contractures Neuro: CN II-XI grossly intact, no focal neuro deficits Psych: Alert, oriented, appropriate affect Data Reviewed Today: Pertinent Labs: WBC 9.45, hemoglobin 10.8, platelet 264 Imaging: No new imaging Assessment and Plan: Status post left total knee arthroplasty Acute blood loss anemia, anticipated outcome of surgery -On oral Tylenol as needed, tramadol as needed, IV Dilaudid as needed, oral [place] as needed, monitor for sedation -Bowel regimen per orthopedic surgery -Currently on aspirin 81 mg twice daily for DVT prophylaxis, consider changing it back to Eliquis given history of DVTs History of provoked DVT -Currently patient on aspirin 81 mg twice daily per orthopedic surgery -Consider restarting Eliquis instead Hypertension -Continue amlodipine 2.5 nightly, losartan 50 nightly Depression -Continue sertraline 50 daily, Seroquel 25 nightly Asthma, not in exacerbation -Continue Symbicort twice daily Patient is medically optimized for discharge. Thank you for allowing us to participate in the care of this pleasant patient. Do not hesitate to contact us with questions. Someone can be reached from the [facility] hospitalist group all hours of the day at [phone] or via [employer]. Objective - Vital Signs Vital signs: Vital Signs Temp 98.0 F 10/22/24 07:22 Pulse 55 L 10/22/24 07:22 Resp 18 10/22/24 07:22 BP 117/72 10/22/24 07:22 Pulse Ox 94 L 10/22/24 07:22 FiO2 Intake & Output 10/21/24 10/22/24 10/22/24 18:59 06:59 18:59 Intake Total 1551 Output Total 100 Balance 1451 Weight 93.5 kg Intake: IV 1551 Output: Estimated Blood Loss 100 Other: Voiding Method Toilet Toilet Diaper # Voids 1 1 - Labs CBC & Chem 7: 10/22/24 06:28 Labs: Abnormal Lab Results - Last 24 Hours (Table) 10/22/24 Range/Units 06:28 RBC 3.93 L (4.10-5.20) X 10*6/uL Hgb 10.8 L (12.0-15.0) g/dL Hct 35.1 L (37.2-46.3) % MCHC 30.8 L (32.0-37.0) g/dL RDW 16.4 H (11.5-14.5) % Monocytes # 1.30 H (0.20-1.00) X 10*3/uL Eosinophils # 0.01 L (0.04-0.35) X 10*3/uL
--- NOTE | 2024-10-22 11:58 | P.PN ---
Subjective Progress Note Date: 10/22/24 Principal diagnosis: Left TKA Patient is seen at bedside this morning. She is postop day #1 from left total knee arthroplasty. She has pain at the surgical site as expected but denies any new complaints. She denies numbness, tingling or calf pain. Review of systems is negative for fever, chills, chest pain, shortness of breath or other Objective - Vital Signs Vital signs: Vital Signs Temp 98.0 F 10/22/24 07:22 Pulse 55 L 10/22/24 07:22 Resp 18 10/22/24 07:22 BP 117/72 10/22/24 07:22 Pulse Ox 94 L 10/22/24 07:22 FiO2 Intake & Output 10/21/24 10/22/24 10/22/24 18:59 06:59 18:59 Intake Total 1551 Output Total 100 Balance 1451 Weight 93.5 kg Intake: IV 1551 Output: Estimated Blood Loss 100 Other: Voiding Method Toilet Toilet Diaper # Voids 1 1 - Exam Inspection reveals a benign surgical wound. There is no active bleeding or drainage. Neurovascular status is intact throughout the lower extremity with motor and sensation fully intact. Calf is soft and nontender. 2+ dorsalis pedis pulse and less than 2 second cap refill is present. - Constitutional General appearance: Present: no acute distress - Labs CBC & Chem 7: 10/22/24 06:28 Labs: Abnormal Lab Results - Last 24 Hours (Table) 10/22/24 Range/Units 06:28 RBC 3.93 L (4.10-5.20) X 10*6/uL Hgb 10.8 L (12.0-15.0) g/dL Hct 35.1 L (37.2-46.3) % MCHC 30.8 L (32.0-37.0) g/dL RDW 16.4 H (11.5-14.5) % Monocytes # 1.30 H (0.20-1.00) X 10*3/uL Eosinophils # 0.01 L (0.04-0.35) X 10*3/uL Assessment and Plan (1) Osteoarthritis of left knee Narrative/Plan: She will continue with routine postop orthopedic protocol including pain management, wound care, PT, DVT prophylaxis and medical management. Expect that she will transfer to [facility] in next 1-2 days Current Visit: Yes Status: Acute Priority: Medium Code(s): M17.12 - UNILATERAL PRIMARY OSTEOARTHRITIS, LEFT KNEE SNOMED Code(s): 029571531356998 Time with Patient: Less than 30
[2024-10-22] MEDS: MULTIVITAMINS, THERA 1 EACH TAB PO SCH (12:46)
--- NOTE | 2024-10-23 09:08 | P.PN ---
Subjective Progress Note Date: 10/23/24 10/21/2024 status post left total knee arthroplasty for severe left knee osteoarthritis by Dr. Shahriar Cho. No acute events overnight. Patient is doing well this morning. They have walked to the bathroom with a walker and assistance. They deny chest pain or shortness of breath. He continued to complain of pain isolated to the left knee surgical site. They state they had severe amount of pain overnight and had difficulty sleeping. They state the pain is the same as yesterday. Objective - Vital Signs Vital signs: Vital Signs Temp 97.7 F 10/23/24 00:51 Pulse 60 10/23/24 00:51 Resp 16 10/23/24 00:51 BP 114/69 10/23/24 00:51 Pulse Ox 92 L 10/23/24 00:51 FiO2 Intake & Output 10/22/24 10/23/24 10/23/24 18:59 06:59 18:59 Other: Voiding Method Toilet Toilet Diaper Diaper # Voids 4 1 - Exam Patient was examined at bedside. Patient is resting comfortably in bed. No apparent distress. They are awake, alert and able to answer questions. Inspection: The surgical dressing was removed to show the surgical incision with no sign of active drainage, infection, skin breakdown, surrounding erythema, or wound dehiscence. There is mild swelling in the operative thigh. Palpation: The operative calf is soft to compression. No calf tenderness. Neurovascular: Operative femoral nerve function is intact. The patient is able to actively plantarflex and dorsiflex their operative ankle and toes. Operative extremity sensation is intact to light touch throughout. Their operative foot appears well perfused, palpable dorsalis pedis pulse, and capillary refill under 2 seconds. - Labs CBC & Chem 7: 10/22/24 06:28 Labs: Abnormal Lab Results - Last 24 Hours (Table) 10/22/24 Range/Units 06:28 RBC 3.93 L (4.10-5.20) X 10*6/uL Hgb 10.8 L (12.0-15.0) g/dL Hct 35.1 L (37.2-46.3) % MCHC 30.8 L (32.0-37.0) g/dL RDW 16.4 H (11.5-14.5) % Monocytes # 1.30 H (0.20-1.00) X 10*3/uL Eosinophils # 0.01 L (0.04-0.35) X 10*3/uL Assessment and Plan Assessment: 10/21/2024 status post left total knee arthroplasty for severe left knee osteoarthritis by Dr. Shahriar Cho. Left knee pain Left knee osteoarthritis Plan: Weight-bear as tolerated on the operative extremity. Use a walker to ambulate. Change surgical dressing as needed. Recommended and discussed up to chair today. We appreciate internal medicine for perioperative medical management. Discussed with nursing team to alternate pain medication to [place] 5 x 2 every 6 hours and see if that improves her pain control. Disposition: Plan to discharge to long-term facility at time of discharge. Anticipate 24 to 48 hours to get pain under control.
--- NOTE | 2024-10-23 13:16 | P.PN ---
Subjective Progress Note Date: 10/23/24 Subjective: Patient seen and examined at bedside. No acute events overnight. Pertinent positives and negatives as discussed above, a complete review of systems was performed and all other systems are negative. Vitals Signs Reviewed. General: Nontoxic, no distress, appears at stated age Derm: Warm, dry, dressing clean, dry, intact Head: Atraumatic, normocephalic, symmetric Eyes: EOMI, no lid lag, anicteric sclera Mouth: No lip lesion, mucus membranes moist Cardiovascular: S1S2 reg, no murmur Lungs: CTA bilateral, no rhonchi, no rales, no accessory muscle use Abdominal: Soft, nontender to palpation, no guarding, no appreciable organomegaly Ext: No gross muscle atrophy, no edema, no contractures Neuro: CN II-XI grossly intact, no focal neuro deficits Psych: Alert, oriented, appropriate affect Data Reviewed Today: Pertinent Labs: No new labs Imaging: No new imaging Assessment and Plan: Status post left total knee arthroplasty Acute blood loss anemia, anticipated outcome of surgery -On oral Tylenol as needed, tramadol as needed, IV Dilaudid as needed, oral [place] as needed, monitor for sedation -Bowel regimen per orthopedic surgery -Currently on aspirin 81 mg twice daily for DVT prophylaxis, consider changing it back to Eliquis given history of DVTs History of provoked DVT -Currently patient on aspirin 81 mg twice daily per orthopedic surgery -Consider restarting Eliquis instead Hypertension -Continue amlodipine 2.5 nightly, losartan 50 nightly Depression -Continue sertraline 50 daily, Seroquel 25 nightly Asthma, not in exacerbation -Continue Symbicort twice daily Patient is medically optimized for discharge. Thank you for allowing us to participate in the care of this pleasant patient. Do not hesitate to contact us with questions. Someone can be reached from the [facility] hospitalist group all hours of the day at [phone] or via [employer]. Objective - Vital Signs Vital signs: Vital Signs Temp 98.1 F 10/23/24 07:08 Pulse 62 10/23/24 07:08 Resp 17 10/23/24 07:08 BP 151/78 10/23/24 07:08 Pulse Ox 91 L 10/23/24 07:08 FiO2 Intake & Output 10/22/24 10/23/24 10/23/24 18:59 06:59 18:59 Other: Voiding Method Toilet Toilet Diaper Diaper # Voids 4 1 - Labs CBC & Chem 7: 10/22/24 06:28
[2024-10-23] MEDS: traMADol 50 MG TAB PO PRN (18:44)
--- NOTE | 2024-10-24 08:55 | P.PN ---
Subjective Progress Note Date: 10/24/24 10/21/2024 status post left total knee arthroplasty for severe left knee osteoarthritis by Dr. Shahriar Cho. No acute events overnight. Patient is doing well this morning. They have walked to the bathroom with a walker and assistance. They deny chest pain or shortness of breath. She continued to complain of pain isolated to the left knee surgical site. They state their pain has been under control since yesterday. Objective - Vital Signs Vital signs: Vital Signs Temp 98.2 F 10/24/24 06:55 Pulse 60 10/24/24 06:55 Resp 18 10/24/24 06:55 BP 131/75 10/24/24 06:55 Pulse Ox 92 L 10/24/24 06:55 FiO2 Intake & Output 10/23/24 10/24/24 10/24/24 18:59 06:59 18:59 Intake Total 640 Balance 640 Intake: Oral 640 Other: Voiding Method Toilet Diaper # Voids 4 1 - Exam Patient was examined at bedside. Patient is resting comfortably sitting on the edge of bed. No apparent distress. They are awake, alert and able to answer questions. Inspection: The surgical dressing was removed to show the surgical incision with no sign of active drainage, infection, skin breakdown, surrounding erythema, or wound dehiscence. There is mild swelling in the operative thigh. Palpation: The operative calf is soft to compression. No calf tenderness. Neurovascular: Operative femoral nerve function is intact. The patient is able to actively plantarflex and dorsiflex their operative ankle and toes. Operative extremity sensation is intact to light touch throughout. Their operative foot appears well perfused, palpable dorsalis pedis pulse, and capillary refill under 2 seconds. - Labs CBC & Chem 7: 10/22/24 06:28 Assessment and Plan Assessment: 10/21/2024 status post left total knee arthroplasty for severe left knee osteoarthritis by Dr. Shahriar Cho. Left knee pain Left knee osteoarthritis Plan: Weight-bear as tolerated on the operative extremity. Use a walker to ambulate. Change surgical dressing as needed. We appreciate internal medicine for perioperative medical management. Disposition: Plan to discharge to [facility] facility at time of discharge. Anticipate transfer tomorrow.
[2024-10-24 09:52] LABS: Basophils # (A) 0.04 X 10*3/uL (0.00-0.10); Basophils % (A) 0.6 %; Eosinophils # (A) 0.48 X 10*3/uL (0.04-0.35); Eosinophils % (A) 6.7 %; HCT 34.9 % (37.2-46.3); HGB 10.8 g/dL (12.0-15.0); Lymphocytes # (A) 1.81 X 10*3/uL (0.90-5.00); Lymphocytes % (A) 25.2 %; MCH 27.1 pg (27.0-32.0); MCHC 30.9 g/dL (32.0-37.0); MCV 87.7 FL (80.0-97.0); Mean Platelet Volume 11.5 FL (9.5-12.2); Monocytes # (A) 0.71 X 10*3/uL (0.20-1.00); Monocytes % (A) 9.9 %; NRBC Per 100 WBC 0 X 10*3/uL (0.00-0.01); Platelet Count 241 X 10*3/uL (140-440); RBC 3.98 X 10*6/uL (4.10-5.20); RDW 16.6 % (11.5-14.5); WBC 7.18 X 10*3/uL (4.50-10.00)
--- NOTE | 2024-10-24 11:47 | P.PN ---
Subjective Progress Note Date: 10/24/24 Subjective: Patient seen and examined at bedside. No acute events overnight. Pertinent positives and negatives as discussed above, a complete review of systems was performed and all other systems are negative. Vitals Signs Reviewed. General: Nontoxic, no distress, appears at stated age Derm: Warm, dry, dressing clean, dry, intact Head: Atraumatic, normocephalic, symmetric Eyes: EOMI, no lid lag, anicteric sclera Mouth: No lip lesion, mucus membranes moist Cardiovascular: S1S2 reg, no murmur Lungs: CTA bilateral, no rhonchi, no rales, no accessory muscle use Abdominal: Soft, nontender to palpation, no guarding, no appreciable organomegaly Ext: No gross muscle atrophy, no edema, no contractures Neuro: CN II-XI grossly intact, no focal neuro deficits Psych: Alert, oriented, appropriate affect Data Reviewed Today: Pertinent Labs: Hemoglobin 10.8 Imaging: No new imaging Assessment and Plan: Status post left total knee arthroplasty Acute blood loss anemia, anticipated outcome of surgery -On oral Tylenol as needed, tramadol as needed, IV Dilaudid as needed, oral [place] as needed, monitor for sedation -Bowel regimen per orthopedic surgery -Currently on aspirin 81 mg twice daily for DVT prophylaxis, consider changing it back to Eliquis given history of DVTs History of provoked DVT -Currently patient on aspirin 81 mg twice daily per orthopedic surgery -Consider restarting Eliquis instead Hypertension -Continue amlodipine 2.5 nightly, losartan 50 nightly Depression -Continue sertraline 50 daily, Seroquel 25 nightly Asthma, not in exacerbation -Continue Symbicort twice daily Patient is medically optimized for discharge. Thank you for allowing us to participate in the care of this pleasant patient. Do not hesitate to contact us with questions. Someone can be reached from the [facility] hospitalist group all hours of the day at [phone] or via [employer]. Objective - Vital Signs Vital signs: Vital Signs Temp 98.2 F 10/24/24 06:55 Pulse 60 10/24/24 06:55 Resp 18 10/24/24 06:55 BP 131/75 10/24/24 06:55 Pulse Ox 92 L 10/24/24 06:55 FiO2 Intake & Output 10/23/24 10/24/24 10/24/24 18:59 06:59 18:59 Intake Total 640 Balance 640 Intake: Oral 640 Other: Voiding Method Toilet Diaper # Voids 4 1 - Labs CBC & Chem 7: 10/24/24 05:53 Labs: Abnormal Lab Results - Last 24 Hours (Table) 10/24/24 Range/Units 05:53 RBC 3.98 L (4.10-5.20) X 10*6/uL Hgb 10.8 L (12.0-15.0) g/dL Hct 34.9 L (37.2-46.3) % MCHC 30.9 L (32.0-37.0) g/dL RDW 16.6 H (11.5-14.5) % Eosinophils # 0.48 H (0.04-0.35) X 10*3/uL
[2024-10-24] MEDS: bisacodyL 10 MG SUPP RECTAL PRN (13:31)
[2024-10-25 00:25] VITALS: TEMP 98.1
[2024-10-25 08:50] VITALS: BP 141/62; PULSE 64; RESP 16
--- NOTE | 2024-10-25 09:35 | P.DS ---
Providers Date of admission: 10/21/24 05:41 Expected date of discharge: 10/25/24 Attending physician: Shahriar Cho Consults: 10/21/24 07:18 Consult Physician Routine Consulting Provider: Kenneth Loza Consult Reason/Comments: post op medical management Do you want consulting provider notified?: Yes Primary care physician: Jorge Chase - Discharge Diagnosis(es) (1) Osteoarthritis of left knee Patient was admitted to the OR on 10/21/24 to undergo a left total knee arthroplasty. She had failed conservative measures as an outpatient and desired to proceed with elective surgery after given informed consent. She underwent the above procedure which she tolerated well without complication. Postoperative hospital course has remained without complication. On day of discharge she is afebrile, vital signs stable, labs within acceptable ranges, tolerating by mouth meds and diet, voiding without difficulty, positive flatus, denies abdominal pain or calf pain, pain is controlled on oral pain medication and has no new complaints. Wound is benign, neurovascular status is intact, calf is soft and nontender, abdomen soft and nontender. Review of systems is negative for numbness, tingling, fever, chills, chest pain, shortness of breath, nausea, vomiting, dizziness, headaches, slurred speech or other. Current Visit: Yes Status: Acute Priority: Medium Procedures: Left TKA Patient Condition at Discharge: Good Plan - Discharge Summary Discharge Rx Participant: No New Discharge Prescriptions: New HYDROcodone/APAP 7.5-325MG [Stanley 7.5-325] 1 - 2 tab PO Q6HR PRN #32 tab PRN Reason: Pain Ondansetron [Zofran] 4 mg PO Q8HR PRN #21 tab PRN Reason: Nausea Docusate [Colace] 100 mg PO BID #60 capsule Continue amLODIPine BESYLATE [Norvasc] 2.5 mg PO HS Budesonide-Formot 160-4.5 Mcg [Symbicort 160-4.5 Mcg Inhaler] 2 puff INHALATION BID QUEtiapine [SEROquel] 25 mg PO HS Sertraline [Zoloft] 50 mg PO DAILY Cholecalciferol [Vitamin D3 (25 Mcg = 1000 Iu)] 25 mcg PO DAILY Ascorbic Acid [Vitamin C] 1,000 mg PO DAILY Losartan [Cozaar] 50 mg PO HS Apixaban [Eliquis] 5 mg PO BID No Action traMADol HCL 50 mg PO Q6H PRN PRN Reason: Pain Discharge Medication List amLODIPine BESYLATE [Norvasc] 2.5 mg PO HS 02/08/14 [History] Ascorbic Acid [Vitamin C] 1,000 mg PO DAILY 01/26/24 [History] Budesonide-Formot 160-4.5 Mcg [Symbicort 160-4.5 Mcg Inhaler] 2 puff INHALATION BID 01/26/24 [History] Cholecalciferol [Vitamin D3 (25 Mcg = 1000 Iu)] 25 mcg PO DAILY 01/26/24 [History] Losartan [Cozaar] 50 mg PO HS 01/26/24 [History] QUEtiapine [SEROquel] 25 mg PO HS 01/26/24 [History] Sertraline [Zoloft] 50 mg PO DAILY 01/26/24 [History] Apixaban [Eliquis] 5 mg PO BID 10/18/24 [History] traMADol HCL 50 mg PO Q6H PRN 10/18/24 [History] Docusate [Colace] 100 mg PO BID #60 capsule 10/22/24 [Rx] HYDROcodone/APAP 7.5-325MG [Stanley 7.5-325] 1 - 2 tab PO Q6HR PRN #32 tab 10/22/24 [Rx] Ondansetron [Zofran] 4 mg PO Q8HR PRN #21 tab 10/22/24 [Rx] Follow up Appointment(s)/Referral(s): Shahriar Cho MD [STAFF PHYSICIAN] - 11/02/24 1:00 pm Activity/Diet/Wound Care/Special Instructions: 1. Weight-bear as tolerated on your operative extremity unless instructed otherwise. Use a walker or other assistive device to ambulate. 2. Leave surgical dressing in place. If your dressing becomes saturated with blood, there is drainage, or the dressing becomes loose please contact the office. 3. It is okay to shower with your surgical dressing, but do not submerge in water (no hot tubs, bath's, swimming etc.) 4. Take your blood clot prevention medication as prescribed (aspirin, Eliquis, Xarelto, and Plavix are commonly prescribed medications for blood clot prevention) 5. While taking Stanley or Percocet for pain take a stool softener (Ex: Colace) and drink lots of water. 6. Keep all follow-up appointments as scheduled. You will usually be seen in 1-2 weeks following surgery. 7. Please contact the office with any questions or concerns [phone] May shower in 3 days if no bleeding, keep wound clean and dry. Discharge Disposition: TRANSFER TO SNF/ECF
--- NOTE | 2024-10-25 11:24 | P.PN ---
Subjective Progress Note Date: 10/25/24 Subjective: Patient seen and examined at bedside. No acute events overnight. Pertinent positives and negatives as discussed above, a complete review of systems was performed and all other systems are negative. Vitals Signs Reviewed. General: Nontoxic, no distress, appears at stated age Derm: Warm, dry, dressing clean, dry, intact Head: Atraumatic, normocephalic, symmetric Eyes: EOMI, no lid lag, anicteric sclera Mouth: No lip lesion, mucus membranes moist Cardiovascular: S1S2 reg, no murmur Lungs: CTA bilateral, no rhonchi, no rales, no accessory muscle use Abdominal: Soft, nontender to palpation, no guarding, no appreciable organomegaly Ext: No gross muscle atrophy, no edema, no contractures Neuro: CN II-XI grossly intact, no focal neuro deficits Psych: Alert, oriented, appropriate affect Data Reviewed Today: Pertinent Labs: No new labs Imaging: No new imaging Assessment and Plan: Status post left total knee arthroplasty Acute blood loss anemia, anticipated outcome of surgery -On oral Tylenol as needed, tramadol as needed, IV Dilaudid as needed, oral [place] as needed, monitor for sedation -Bowel regimen per orthopedic surgery -Restart Eliquis at discharge History of provoked DVT -Restart Eliquis Hypertension -Continue amlodipine 2.5 nightly, losartan 50 nightly Depression -Continue sertraline 50 daily, Seroquel 25 nightly Asthma, not in exacerbation -Continue Symbicort twice daily Patient is medically optimized for discharge. Thank you for allowing us to participate in the care of this pleasant patient. Do not hesitate to contact us with questions. Someone can be reached from the [facility] hospitalist group all hours of the day at [phone] or via [employer]. Objective - Vital Signs Vital signs: Vital Signs Temp 98.1 F 10/25/24 07:15 Pulse 64 10/25/24 07:15 Resp 16 10/25/24 07:15 BP 141/62 10/25/24 07:15 Pulse Ox 94 L 10/25/24 07:15 FiO2 Intake & Output 10/24/24 10/25/24 10/25/24 18:59 06:59 18:59 Other: Voiding Method Toilet Diaper # Voids 3 2 # Bowel Movements 2 1 - Labs CBC & Chem 7: 10/24/24 05:53
== END 2024-10-25 11:53 ==
LOC: OR 05:40 → 4SSUR 05:41
PROVIDERS: ADMIT Orthopaedic Surgery Sports Medicine; ATTEND Orthopaedic Surgery Sports Medicine
DX: M17.12 Unilateral primary osteoarthritis, left knee (principal); M25.762 Osteophyte, left knee; G89.18 Other acute postprocedural pain; D62 Acute posthemorrhagic anemia; I10 Essential (primary) hypertension; F32.A Depression, unspecified; J45.909 Unspecified asthma, uncomplicated; F41.9 Anxiety disorder, unspecified; Z86.718 Personal history of other venous thrombosis and embolism; Z87.891 Personal history of nicotine dependence; Z79.01 Long term (current) use of anticoagulants; Z79.51 Long term (current) use of inhaled steroids; Z79.82 Long term (current) use of aspirin; Z79.899 Other long term (current) drug therapy
CPT/HCPCS: 27447; 96376 ×2; 96365; 96366; 96375; 94640 ×8; 97116; 97161; 97535; 97166; 64999; 64448; 85025 ×2; 73560; G0378 ×5; G0379; C1776; C1713; C1751; J2250; J1100; J0690 ×2; J2405; J3010; J1171 ×3; J2795; J2704

== ENCOUNTER → 2025-02-22 | Outpatient (CLI) | payer MEDICARE ==
--- NOTE | 2025-02-22 18:12 | MM ---
Reason for Exam: Screening (asymptomatic). Last mammogram was performed 3 year(s) and 3 month(s) ago. Patient History: Menarche at age 13. First Full-Term at age 34. Late child-bearing (after 28). Left ovary removed at age 43. Right ovary removed at age 43. Hysterectomy at age 43. Postmenopausal. Patient has history of breast feeding. Patient used Hormonal Contraceptives for 9 years. Risk Values: Kirti 5 year model risk: 2.1%. NCI Lifetime model risk: 7.5%. Prior Study Comparison: 07/24/2016 Bilateral Screening Mammogram, [facility]. 04/28/2019 Bilateral Screening Mammogram, [facility]. 12/17/2021 Bilateral Screening Mammogram, [facility]. Tissue Density: The breasts are heterogeneously dense, which may obscure small masses. Findings: Analyzed By CAD. Chest 2021, multiple underlying nodules have developed bilaterally. Most of these are very small, circumscribed and either low density or isodense with an overall pattern suggesting benign cysts. However, there is a dominant nodule anteriorly in the right breast at 8 and 9:00 and a couple within the medial left breast anteriorly measuring up to 1.7 cm. Further evaluation is recommended. Overall Assessment: Incomplete: need additional imaging evaluation, BI-RAD 0 Management: Special View Mammogram of both breasts. Diagnostic Breast Ultrasound of both breasts. 1. Additional spot 3-D and 3-D lateral views of the left breast. 2. Additional 3-D ML view of the right breast. 3. Subsequently, recommend targeted right breast ultrasound 8 to 9:00 position approximately 2 to 3 cm from the nipple. 4. Recommend targeted ultrasound medial half of the left breast. Dominant nodule here seems to be located within the lower inner quadrant measuring up to 1.[address] [facility] will attempt to contact patient to return for supplemental views and ultrasound if indicated. [facility], , 02/22/2025 6:08 PM. Electronically signed and approved by: Cristiano Gallo M.D. Radiologist
== END | disposition home or self-care (01) ==
LOC: RADMAMWWP 13:17
PROVIDERS: ATTEND Family Medicine
DX: Z12.31 Encounter for screening mammogram for malignant neoplasm of breast (principal); R92.333 Mammographic heterogeneous density, bilateral breasts; Z78.0 Asymptomatic menopausal state; Z92.0 Personal history of contraception
CPT/HCPCS: 77063; 77067

== ENCOUNTER → 2025-03-02 | Outpatient (CLI) | payer MEDICARE ==
--- NOTE | 2025-03-02 15:24 | MM ---
Reason for Exam: Additional evaluation requested from abnormal screening. Last screening mammogram was performed less than 1 month ago. Patient History: Menarche at age 13. First Full-Term at age 34. Late child-bearing (after 28). Left ovary removed at age 43. Right ovary removed at age 43. Hysterectomy at age 43. Postmenopausal. Patient has history of breast feeding. Patient used Hormonal Contraceptives for 9 years. Risk Values: Kirti 5 year model risk: 2.1%. NCI Lifetime model risk: 7.5%. Prior Study Comparison: 12/17/2021 Bilateral Screening Mammogram, [facility]. 02/22/2025 Bilateral MG 3D screening mammo w/cad, [facility]. Tissue Density: The breasts are heterogeneously dense, which may obscure small masses. Findings: Analyzed By CAD. There is persistent 1.6 cm mass along the inferior medial aspect of the left nipple on the additional views. There is persistent 8 mm circumscribed round mass 3 cm distance from the lower outer aspect on the additional views. Overall Assessment: Incomplete: need additional imaging evaluation, BI-RAD 0 Management: Diagnostic Breast Ultrasound of both breasts. Targeted bilateral breast ultrasound. Results were given to the patient verbally at the time of exam. Patient should continue monthly self-breast exams. A clinical breast exam by your physician is recommended on an annual basis. This exam should not preclude additional follow-up of suspicious palpable abnormalities. Note on Kirti scores and lifetime risk: 1. A Kirti score greater than 3% is considered moderate risk. If this is the case, consider specialist referral to assess eligibility for a risk reducing agent. 2. If overall lifetime risk for the development of breast cancer is 20% or higher, the patient may qualify for future screening with alternating mammogram and breast MRI. [facility], , 03/02/2025 3:21 PM. Electronically signed and approved by: Santiago Roman M.D.
--- NOTE | 2025-03-02 15:57 | USB ---
Reason for Exam: Additional evaluation requested from abnormal screening. Patient History: Menarche at age 13. First Full-Term at age 34. Late child-bearing (after 28). Left ovary removed at age 43. Right ovary removed at age 43. Hysterectomy at age 43. Postmenopausal. Patient has history of breast feeding. Patient used Hormonal Contraceptives for 9 years. Risk Values: Kirti 5 year model risk: 2.1%. NCI Lifetime model risk: 7.5%. Technique: Method: Targeted. Prior Study Comparison: 04/28/2019 Bilateral Screening Mammogram, [facility]. 12/17/2021 Bilateral Screening Mammogram, [facility]. 02/22/2025 Bilateral MG 3D screening mammo w/cad, [facility]. Findings: The lateral section of the breast of the right breast, the medial section of the breast of the left breast, the axilla of both breasts and the retroareolar of both breasts were scanned. Targeted bilateral breast ultrasound. In the right breast at 9:00 position 2 cm distance from nipple there is a thin-walled cyst with lobulated margins measuring 1.1 x 0.7 x 0.6 cm. This is felt to correspond to the mammogram abnormality In the left breast there is a 1.7 x 1.0 x 1.7 cm thin-walled cyst along the medial aspect of the left breast corresponding to mammogram abnormality. This appears to have some dependent debris. Overall Assessment: Probably benign, BI-RAD 3 Management: Diagnostic Mammogram of both breasts in 6 months. Diagnostic Breast Ultrasound of both breasts in 6 months. Precautionary short-term diagnostic mammogram and ultrasound follow-up for bilateral breasts. A clinical breast exam by your physician is recommended on an annual basis and results should be correlated with mammographic findings. This exam should not preclude additional follow-up of suspicious palpable abnormalities. Results were given to the patient verbally at the time of exam. [facility], , 03/02/2025 3:53 PM. Electronically signed and approved by: Santiago Roman M.D.
== END | disposition home or self-care (01) ==
LOC: RADMAMWWP 14:45
PROVIDERS: ATTEND Family Medicine
DX: R92.8 Other abnormal and inconclusive findings on diagnostic imaging of breast (principal); R92.333 Mammographic heterogeneous density, bilateral breasts; Z92.0 Personal history of contraception; Z78.0 Asymptomatic menopausal state
CPT/HCPCS: 77062; 77066